=== PATIENT | male | born 1980 | race Caucasian/White ===

== ENCOUNTER 2020-03-29 18:58 | Emergency (ER) | payer BC, SELFPAY ==
[2020-03-29 19:01] VITALS: BP 166/96; PULSE 90; RESP 18; TEMP 36.1; O2SAT 99; BMI 37.3
--- NOTE | 2020-03-29 19:13 | XR_ITS ---
EXAMINATION: XR KNEE, RIGHT CLINICAL INFORMATION: Twisting injury. COMPARISON: None. TECHNIQUE: 4 views of the right knee. FINDINGS: No acute fracture or dislocation. No joint space narrowing or marginal osteophytes. No osseous erosion. No abnormal soft tissue calcification. Trace joint effusion. XR/XR knee RT 4V IMPRESSION: No acute fracture or dislocation. Trace joint effusion.
--- NOTE | 2020-03-29 19:39 | ED_ITS ---
HPI - Extremity Injury (Lower) General Chief Complaint: Extremity Injury, Lower Stated Complaint: knee injury Time Seen by Provider: 03/29/20 19:13 Source: patient Mode of arrival: ambulatory Limitations: no limitations History of Present Illness HPI Narrative: 39-year-old male here with right knee pain. The patient also he was skiing tonight and came to a sudden stop causing a twisting injury of the right knee. He heard a pop. He has had pain since. Worsened with weight- bearing. No previous injury. MD complaint: knee injury Onset (ago): hour(s) Injury: Right: knee Type of Injury: other (Twisting) Place: other ([place]) Severity: moderate Relieving factors: immobilization and rest Exacerbating factors: weight bearing, movement and palpation Context: other (Skiing) Associated symptoms: snap/pop sensation Other symptoms: none Related Data Previous Rx's Medication Instructions Recorded hydrocodone-acetaminophen 1 tab PO Q6H PRN #10 tab 03/29/20 ibuprofen 600 mg PO TID PRN #20 tab 03/29/20 Allergies Allergy/AdvReac Type Severity Reaction Status Date / Time Pt states no food/medication Allergy Unknown Uncoded 07/14/17 00:00 a Review of Systems Review of Systems: Yes all other systems are reviewed and are negative Constitutional: Constitutional: Reports no additional constitutional complaints, Denies body ache(s), Denies chills, Denies fever(s), Denies headache(s) and Denies weakness Eyes: Eyes: Reports no additional eye complaints and Denies change in vision ENT: Reports system reviewed and no additional complaints, except as documented, Denies dizziness, Denies headache(s), Denies nasal congestion, Denies nasal discharge and Denies neck pain Cardiovascular: Cardiovascular: Reports no additional cardiovascular complaints, Denies chest pain, Denies leg edema and Denies dyspnea Respiratory: Respiratory: Reports no additional respiratory complaints, Denies cough and Denies dyspnea Gastrointestinal: Gastrointestinal: Reports no additional gastrointestinal complaints, Denies abdominal pain, Denies diarrhea, Denies nausea and Denies vomiting Genitourinary: Genitourinary: Denies urinary incontinence Musculoskeletal: Musculoskeletal: Reports no additional musculoskeletal complaints, Denies back pain, Reports arthralgias, Denies joint swelling, Denies neck pain, Denies numbness and Denies tingling Integumentary/Breasts: Skin/Breast: Reports system reviewed and no additional complaints, except as docu and Denies rash Neurologic: Reports system reviewed and no additional complaints, except as documented, Denies Abnormal speech present, Denies dizziness, Denies headache(s), Denies numbness, Denies tingling and Denies weakness PMFSH Past Medical History Attestation statement: The following information was validated with the patient. Source: old records reviewed and nursing notes reviewed Medical History Diabetes High cholesterol HTN (hypertension) Obesity Surgical History History of appendectomy Social History Social History Advance Directives: No Advance Directives Information Provided: No Physical Exam Vital Signs: Vital Signs: Last Vital Signs Temp 97.0 F 03/29/20 19:01 Pulse 90 03/29/20 19:01 Resp 18 03/29/20 19:01 BP 166/96 H 03/29/20 19:01 Pulse Ox 99 03/29/20 19:01 Body Mass Index 37.3 Const: General: cooperative, healthy appearing, comfortable and no acute distress Orientation/consciousness: patient oriented x3 Limitations: no limitations HENMT: Head: Yes normal to inspection Ears: hearing grossly normal bilaterally General nose exam: Normal external nose present Face and sinus: Yes normal facial exam Mouth: Normal oral and palatal mucosa present Throat: Yes posterior oropharynx normal Eyes: General: appearance normal, both eyes and all related structures Pupils: Equal, round and reactive pupils present Neck: Neck: Yes normal visual inspection Chest: Chest palpation & inspection: normal inspection of the chest Resp: Effort & Inspection: normal respiratory effort Auscultation: clear to auscultation bilaterally Cardio: Rate: regular rate Rhythm: regular rhythm Peripheral pulses: Peripheral pulses 2+ throughout GI: Inspection: Yes normal to inspection Palpation (GI): Soft to palpation and nontender Auscultation: normal bowel sounds Back/Spine/Pelvis: Thoracic/Lumbar Spine: thoracic and lumbar spine normal to inspection Skin: General skin exam: no rashes or lesions noted Neuro: General: patient oriented x3, no focal motor deficits and normal sensation to monofilament Cranial nerves: Yes Equal, round and reactive pupils present Cognition (Neuro): normal cognition Speech: No Abnormal speech present Gait exam (Neuro): Normal gait present Motor exam (neuro): 5/5 motor strength present throughout Extrem: Other: Tenderness and mild swelling noted over the medial joint line and ligament of the right knee. Patient is able to flex and extend the right knee although has some pain with this. There is no redness, warmth. Neurovascular intact distally. There is some laxity noted of the medial ligament General: Yes normal to inspection Course Course Course Narrative: X-rays negative for bony abnormality. Patient has some laxity of the medial ligament. Likely medial ligament sprain. Considered meniscus injury as well. Patient was placed in a knee splint and given crutches for ambulation. Recommend follow-up outpatient with orthopedics. Reviewed worrisome signs and symptoms and when to return to the emergency department. Comfortable with discharge home. Procedures Orthopedic Splinting/Casting Injury #1: Side: right Lower Extremity Injury Location: knee Lower Extremity Immobilizer: knee immobilizer Other Orthopedic Equipment: crutches MDM - Extremity Injury (Lower) Medical Records Attestation: I reviewed the patient's medical records. Lab Data Attestation: I reviewed the patient's lab results. Imaging Data knee xray: Attestation: I personally reviewed and interpreted this imaging study as follows: Radiologist's impression: [address] [address] XRay Report Signed Patient: Manjit Duffy [facility]#: [id number] : 1980Acct:[id number] Age/Sex: 39 / MADM Date: 03/29/20 Loc: HO.ED Attending Dr: Ordering Physician: KATHIA JUAREZ NP Date of Service: 03/29/20 Procedure(s): XR knee RT 4V Accession Number(s): [id number] cc: KATHIA JUAREZ NP~ EXAMINATION: XR KNEE, RIGHT CLINICAL INFORMATION: Twisting injury. COMPARISON: None. TECHNIQUE: 4 views of the right knee. FINDINGS: No acute fracture or dislocation. No joint space narrowing or marginal osteophytes. No osseous erosion. No abnormal soft tissue calcification. Trace joint effusion. XR/XR knee RT 4V IMPRESSION: No acute fracture or dislocation. Trace joint effusion. Discharge Plan Discharge Clinical Impression: Sprain of right knee Qualifiers: Encounter type: initial encounter Involved ligament of knee: medial collateral ligament Qualified Code(s): S83.411A - Sprain of medial collateral ligament of right knee, initial encounter Patient Disposition: Home, Self-Care Instructions: Knee Sprain (ED) Additional Instructions: Use the knee brace and crutches for nonweightbearing until cleared by Ortho Apply ice, elevate, rest the knee Take ibuprofen around the clock and the stronger pain medicine if you needed Follow-up with [facility]. If you cannot get an appointment with them I have attached a number for our orthopedic doctors. When you speak with them on the phone told me you are seen in the emergency department and there is concern that your medial ligament is injured Prescriptions: New ibuprofen 600 mg tablet 600 mg PO TID PRN (Reason: pain) Qty: 20 RF: 0 hydrocodone-acetaminophen 5-300 mg tablet 1 tab PO Q6H PRN (Reason: pain) Qty: 10 RF: 0 Referrals: Sandhya Berg MD [Physician] - 2 days Interventions: ED Discharge Assessment Last Done: 03/29/20 20:12 Discharge Date/Time: 03/29/20 20:13
== END 2020-03-29 20:13 | disposition home or self-care (01) ==
PROVIDERS: Emergency Provider Emergency Medicine; PCP Internal Medicine
DX: S83.411A Sprain of medial collateral ligament of right knee, initial encounter (principal); X50.1XXA Overexertion from prolonged static or awkward postures, initial encounter; Y93.23 Activity, snow (alpine) (downhill) skiing, snowboarding, sledding, tobogganing and snow tubing; Y92.828 Other wilderness area as the place of occurrence of the external cause; Y99.8 Other external cause status
CPT/HCPCS: 73564; 99283

== ENCOUNTER 2024-05-31 09:45 | Emergency (ER) | payer BC, SELFPAY ==
--- NOTE | ~2024-05-31 | XR_ITS ---
EXAMINATION: XR ANKLE, LEFT CLINICAL INFORMATION: lt ankle injury COMPARISON: None available. TECHNIQUE: AP, lateral, and mortise views of the left ankle. FINDINGS: No acute cortical disruption or malalignment. No lytic or blastic lesion. No joint fusion. XR/XR ankle LT min 3V IMPRESSION: Normal left ankle. Electronically signed by: Jose Gomez MD 05/31/2024 10:15 AM BRENDA
[2024-05-31 09:49] VITALS: BP 161/115; PULSE 85; RESP 16; TEMP 36.6; O2SAT 98; BMI 30.3
--- NOTE | 2024-05-31 10:32 | ED.LOWEXIN ---
HPI - Extremity Injury (Lower) General Chief Complaint: Extremity Injury, Lower Stated Complaint: ? L Ankle Fracture 05/30/24 Time Seen by Provider: 05/31/24 10:22 Source: patient Mode of arrival: ambulatory Limitations: no limitations History of Present Illness ED Provider: DENNY MARIN Narrative: 44 yo male with PMH of HTN, DM not on thinners slip and fall on the ice rolled L ankle yesterday with inversion injury now hurts to walk no other injuries reported. He did walk in to triage on his own. Has sprained this ankle before. This happened last night. complaint: ankle injury Onset (ago): day(s) (last night) Injury: Left: ankle Type of Injury: inversion Place: street/outdoors Severity: moderate Relieving factors: immobilization Exacerbating factors: weight bearing Context: walking Associated symptoms: snap/pop sensation and swelling Other symptoms: none Related Data Previous Rx's ?Medication ?Instructions ?Recorded hydrocodone 5 mg-acetaminophen 300 1 tab PO Q6H PRN pain #10 tabs 03/29/20 mg tablet ibuprofen 600 mg tablet 600 mg PO TID PRN pain #20 tabs 03/29/20 Allergies Allergy/AdvReac Type Severity Reaction Status Date / Time No Known Allergies Allergy Verified 05/31/24 09:50 Review of Systems Review of Systems: Constitutional : No Fever, No Chills ENT/Mouth : No Ear Pain, No Hoarseness, No sore throat Eyes: No Eye Pain, No Swelling, No Redness, No Foreign Body Cardiovascular : No Chest Pain, No SOB Respiratory : No Cough, No Dyspnea Gastrointestinal : No Nausea, No Vomiting, No Diarrhea, No abdominal Pain Genitourinary : No Dysuria, No Hematuria Musculoskeletal : positive joint pain, No Myalgias, pos Joint Swelling Skin : No Skin lacerations, No rash All other systems reviewed and are negative PMFSH Past Medical History Attestation statement: The following information was validated with the patient. Source: old records reviewed Medical History Obesity High cholesterol HTN (hypertension) Diabetes Surgical History History of appendectomy Social History Social History (Updated 05/31/24 @ 12:22 by Bev Alford DO) Patient Tobacco Use Status: Never used Tobacco Physical Exam Vital Signs: Vital Signs: Last Vital Signs Temp 97.9 F 05/31/24 10:36 Pulse 85 05/31/24 10:36 Resp 16 05/31/24 10:36 BP 161/115 H 05/31/24 10:36 Pulse Ox 98 05/31/24 10:36 O2 Del Method Room Air 05/31/24 10:36 BMI result Body Mass Index 30.3 Appearance: Alert. Oriented X3. No acute distress. Eyes: Pupils equal, round and reactive to light. ENT: Pharynx normal. Neck: Normal inspection. CVS: Pulses normal. Respiratory: No respiratory distress. Abdomen: atraumatic Skin: Skin warm and dry. Normal skin color. Extremities: No lower extremity edema. L ankle ttp along anterior lateral malleolus, achilles intact, escamilla test normal, distal NV Intact, no foot or metatarsal pain, achilles exam normal no ttp or swelling Neuro: Oriented X 3. No motor deficit. No sensory deficit. CN2-12 intact Medical Decision Making Medical Decision Making MDM Narrative: 44 yo male with DM, HTN here with c/o L ankle pain and swelling after rolling ankle on exam compartments are soft and compressible his Achilles test is normal at this time will need xray to rule out fracture and plan for air cast and crutches. He is instructed to wear aircast for 7 days and use crutches for 5 days without toe touch weight bearing on day 5. Follow up with PCP if not better Differential Diagnosis Differential Diagnoses: The differential diagnosis associated with the presentation includes sprain, strain, fracture Independent Interpretation I performed an independent interpretation of an: Plain X-Ray (no fracture noted) Radiology Impression Discussion of test interpretation with radiology: I have reviewed the radiologist's reading. Prescription Management I considered prescription management with: Pain Medication Procedures Orthopedic Splinting/Casting Injury #1: Side: left Lower Extremity Injury Location: ankle Lower Extremity Immobilizer: AirCast Other Orthopedic Equipment: crutches Additional Comments: NV intact Discharge Plan Discharge Clinical Impression: Ankle sprain and strain Patient Disposition: Home, Self-Care Instructions: Ankle Sprain (ED), Ankle Stirrup Splint (ED) Additional Instructions: xray normal return for any worsening symptoms or concerns such as severe calf pain and numbness/weakness or cold blue foot if not better in 5 days please follow up with your doctor. your blood pressure was high today please monitor CLINICAL INFORMATION: lt ankle injury COMPARISON: None available. TECHNIQUE: AP, lateral, and mortise views of the left ankle. FINDINGS: No acute cortical disruption or malalignment. No lytic or blastic lesion. No joint fusion. XR/XR ankle LT min 3V IMPRESSION: Normal left ankle. Prescriptions: No Action ibuprofen 600 mg tablet 600 mg PO TID PRN (Reason: pain) Qty: 20 0RF hydrocodone-acetaminophen 5-300 mg tablet 1 tab PO Q6H PRN (Reason: pain) Qty: 10 0RF Interventions: ED Discharge Assessment Last Done: 05/31/24 10:36 Discharge Date/Time: 05/31/24 10:38 Print Language: Luxembourgish
[2024-05-31 10:36] VITALS: BP 161/115; PULSE 85; RESP 16; TEMP 36.6; O2SAT 98
--- OUTSIDE RECORDS SUMMARY | 2024-05-31 12:34 | XMS_ITS | Continuity of Care Document ---
Author Organization [facility] Address [address] [place] [address]- Care Team Providers Care Jet Pilot Name Role Phone Devan Prasad MD Primary Care Physician [phone] [id number] Date[facility]s): 04/28/24 - 05/28/24 [facility] [address] [place], [place] [address] Encounter Type: Triage Allergies, Adverse Reactions, Alerts Substance Criticality Severity Reaction Reaction Severity Status lisinopril cough Active Norvasc gi upset Active Trulicity Pen Unable to assess criticality Persistent Mild gi upset Active tadalafil nausea Active Victoza gi upset Active Immunizations Given and Recorded Vaccine Date Status Refusal Reason influenza virus vaccine, inactivated 01/13/22 Bashir rded influenza virus vaccine, inactivated 12/25/20 Bashir rded influenza virus vaccine, inactivated 01/15/20 Bashir rded influenza virus vaccine, inactivated 01/01/20 Bashir rded influenza virus vaccine, inactivated 01/06/19 Bashir rded influenza virus vaccine, inactivated 1 02/21/18 Gi dann influenza virus vaccine, inactivated 2 12/09/16 Gi dann influenza virus vaccine, inactivated 01/28/16 Bashir rded influenza virus vaccine, inactivated 3 01/01/14 Gi dann SARS-CoV-2 mRNA ([id number]) vax 06/12/21 Recorded SARS-CoV-2 (COVID-19) mRNA BNT-162b2 vac 12/25/20 Recorded SARS-CoV-2 (COVID-19) mRNA BNT-162b2 vac 05/15/20 Recorded SARS-CoV-2 (COVID-19) mRNA BNT-162b2 vac 4 04/22/20 Recorded Influenza Virus Vaccine (oldterm) 04/17/18 Recorde d tetanus/diphtheria/pertussis, acel(Tdap) 5 12/09/16 Given pneumococcal 23-valent vaccine 10/02/13 Given FluLaval (oldterm) 01/15/10 Given tetanus-diphtheria toxoids (Td) 02/26/06 Given 1Result Comment: [02/21/2018] [facility]# [id number] pt. tolerated inj. without complications...CO 2Result Comment: [12/09/2016] given without incident. [id number] injection....vb 3Result Comment: [01/01/2014] given w/o incident...AA 4Result Comment: Given at [facility] 5Result Comment: [12/09/2016] given without incident.....vb Medications Baqsimi Two Pack 3 mg nasal powder = 3 mg, Nares, Both, Once, For emergency use in event of hypoglycemia and unable to take in PO, # 2each, 0 Refills, Soft Stop, 10/22/21 10:28:00 AM EDT, [facility]/pharmacy #[id number], Partial fill upon patient request if the prescription is for a schedule II opioid drug., 177.8, cm, 10/22/21 7:56:00 EDT, Height, 119.5, kg, 10/21/21 19:44:00 EDT, Dry Weight Start Date: 10/22/21 Status: Ordered Quantity: 2.0 Unit: each Repeat number: 1 Calcium 600 +D oral tablet 1 tablet, By Mouth, 3 times a day, # 90 tablet, 0 Refills, Maintenance, 07/29/22 2:16:00 PM EDT, Tablet, Partial fill upon patient request if the prescription is for a schedule II opioid drug. Start Date: 07/29/22 Status: Ordered Quantity: 90.0 Unit: tablet Repeat number: 1 citalopram 20 mg oral tablet 1 tablet, By Mouth, Daily, # 90 tablet, 1 Refills, Maintenance, 04/28/24 2:59:00 PM EST, [facility], 177.8, cm, 12/27/23 15:40:00 EDT, Height, 96.9, kg, 12/27/23 15:20:00 EDT, Dry Weight Start Date: 04/28/24 Status: Ordered Quantity: 90.0 Unit: tablet Repeat number: 1 losartan 100 mg oral tablet 1 tablet, By Mouth, Daily, # 90 tablet, 3 Refills, Maintenance, 11/01/23 12:44:00 PM EDT, [facility], 177.8, cm, 10/14/22 15:21:00 EDT, Height, 91.4, kg, 06/26/22 7:24:00 EDT, Dry Weight Start Date: 11/01/23 Status: Ordered Quantity: 90.0 Unit: tablet Repeat number: 1 Metamucil 400 mg oral capsule See Instructions, 3 capsule By Mouth 2 times a day, 0 Refills, Maintenance, 07/29/22 2:16:00 PM EDT, Partial fill upon patient request if the prescription is for a schedule II opioid drug. Start Date: 07/29/22 Status: Ordered Repeat number: 1 Metformin = 1,000 mg, By Mouth, 2 times a day, 0 Refills, Maintenance, 02/08/19 11:43:15 AM EST Start Date: 02/08/19 Status: Ordered Repeat number: 1 metoprolol 50 mg oral tablet, extended release See Instructions, 1 tablet By Mouth twice Daily, # 180 each, Refills 3, Tot. Refills 3, Maintenance, 07/14/23 7:43:00 AM EDT, Instructions Replace Required Details, Route to Pharmacy Electronically, [facility], Partial fill upon patient request if the prescription is for a schedule II opioid drug., 177.8, cm, 10/14/22 15:21:00 EDT, Height, 91.4, kg, 06/26/22 7:24:00 EDT, DryWeight Start Date: 07/14/23 Status: Ordered Quantity: 180.0 Unit: each Repeat number: 4 Multivitamin 1 cap, By Mouth, Daily, 0 Refills, Maintenance, 04/24/20 1:53:00 PM EST, Partial fill upon patient request if the prescription is for a schedule II opioid drug. Start Date: 04/24/20 Status: Ordered Repeat number: 1 omeprazole 20 mg oral enteric coated capsule See Instructions, TAKE 1 CAPSULE DAILY, # 90 capsule, 3 Refills, Maintenance, 03/30/23 3:32:00 PM EST, [facility], 177.8, cm, 10/14/22 15:21:00 EDT, Height, 91.4, kg, 06/26/22 7:24:00 EDT, Dry Weight Start Date: 03/30/23 Status: Ordered Quantity: 90.0 Unit: capsule Repeat number: 4 Probiotic Formula By Mouth, Daily, 0 Refills, Maintenance, 06/23/22 11:27:00 AM EDT, Partial fill upon patient requestif the prescription is for a schedule II opioid drug. Start Date: 06/23/22 Status: Ordered Repeat number: 1 Problem List Condition Confirmation Course Effective Dates Status H ealth Status Informant Anxiety Confirmed Active Appendectomy Confirmed 05/2006 Active Family history of colon cancer Confirmed Active GERD (gastroesophageal reflux disease) Confirmed Active H/O chest pain Confirmed Active History of repair of ACL Confirmed Active History of sleeve gastrectomy Confirmed Active Hyperlipidemia Confirmed Active Hypertension Confirmed Active Supraumbilical port site incisional hernia Confirmed Active Obese class I Confirmed Active DARIEN on CPAP Confirmed Active Fatty liver Confirmed Active Diabetes mellitus type 2, uncomplicated Confirmed Active Social History Social History Type Response Smoking Status Never (less than 100 in lifetime) entered on: 02/14/19 Sex Sex Representation Male (finding) Patient Care team information Care Team Personnel Name: Susan Schwarz RN Position: [facility] RN Member Role: Primary Care Nurse Name: Devan Prasad MD Position: [facility] Physician - Primary Care Member Role: PCP Address: [address] [place] [address] [facility] [address] Telecom: Care Team Related Persons Name: FIONA OLEARY Name: TAMMIE OLEARY Insurance Providers Guarantor name: KRISTEN OLEARY Health Plan Information #: 1 Payer: [employer] Member Number: NA Policy Number: NA Group Number: NA
--- OUTSIDE RECORDS SUMMARY | 2024-05-31 12:34 | XMS_ITS | Patient Health Record ---
Author Organization [facility] Address [address] [place] [address] Care Team Providers Care Palliative Care Nurse Name Role Phone Osmar BOURNE, Devan Primary Care Provider Soni Quiñonez Unavailable [phone] Allergies No Known Allergies Reason For Referral No Information Medications Medication SIG (Take, Route, Frequency, Duration) Notes Start Date End Date Status Work Note . . . Pt was seen today and had minor nail surgery for . 12/11/2013 Not-Taking Metoprolol Succinate 50 MG 1 capsule Ora lly Once a day for 30 day(s) Active Keflex 500 MG 1 capsule Orally every 12 hrs for 10 day(s) 11/02/2013 Not-Taking Vascepa 1 GM 2 capsules with meals Orally Twice a day for 30 day(s) Not-Taking Keflex 500 MG 1 capsule Orally every 12 hrs for 10 day(s) 12/11/2013 Not-Taking Losartan Potassium 100 MG 1 tablet Orall y Once a day for 30 day(s) Active NovoLOG 100 UNIT/ML as directed Subcutaneous Not-Taking glipiZIDE Not-Taking Ozempic (0.25 or 0.5 MG/DOSE) 2 MG/1.5ML as directed Subcutaneous Not-Taking lipitor Not-Taking Cephalexin 500 MG 1 capsule Orally every 12 hrs for 5 day(s) Active Doxycycline (Rosacea) 100mg Not-Taking hydroCHLOROthiazide 25mg Not-Taking Omeprazole 20 MG 1 tablet 30 minutes before morning meal Orally Once a day Active Rosuvastatin Calcium 40 MG 1 tablet Oral ly Once a day for 30 day(s) Not-Taking Acetaminophen-Codeine #2 300-15 MG 1 tablet as needed Orally every 6 hrs for as needed 11/02/2013 Not-Taking metFORMIN HCl 1000 MG 2 tablets Orally Once a day Active Social History Alcohol Screen Question Answer Notes Did you have a drink containing alcohol in the p ast year? No Points 0 Interpretation Negative Tobacco use other than smoking: Question Answer Notes Are you an other tobacco user? No Problems Problem Type SNOMED Code ICD Code Onset Dates Problem Status W/U Status Risk Notes Problem Cellulitis and abscess of toe (521206789) Celluitis - Toes (681.10) Active confirmed Problem Pain in limb (64200572) Pain in Limb (729.5) Active confirmed Problem Paronychia (92451142) Paronychia (681.11) Active confirmed Problem 355899530 Type 2 diabetes mellitus without complication, without long-term current use of insulin (E11.9) Active confirmed Plan Of Treatment Pending Test Test Name Order Date [id number] 11/02/2013 [id number] SKIN/TISSUE 11/15/2013 59763 I&D ABSCESS- SIMPLE,SINGLE 014 72451 I&D ABSCESS- SIMPLE,SINGLE 014 Insurance Providers Payer Name Payer Address Payer Phone Subscriber Number Group Number Insured Name Patient Relationship to Insured Coverage Start Date Coverage End Date [employer] [address] [place] [address] [phone] [id number] Susan Duffy Spouse - patient is the spouse of the insured Medical (General) History Medical History History ICD Code Hypertension Chicken pox type II diabetes Diverticulitis Hiatal hernia Joint implants/screws Surgical History Surgery Date(Month/Year) appendectomy acl Weight loss surgery
--- OUTSIDE RECORDS SUMMARY | 2024-05-31 12:34 | XMS_ITS | Data Portability ---
Author Organization [facility], , [facility] Address [address] [place] [address] Care Team Providers Care Electroneurodiagnostic Technologist Name Role Phone OSMAR ANTONIO Primary Care Provider JAS HARRELL Family And Consumer Science Professor NOE LYLE Product Marketing Director OSMAN AMAYA Cotton Washer Assessment Encounter Date Assessment Date Assessment LastModified by Organization Details LastModified Time 04/29/2021 04/29/2021 T2DM - previously on metformin, Lantus and humalog but only on glargine (08/2017) after had significant weight loss working with program in [place] (high protein low CHO). 2019- metformin, lantus, humalog and jardiance (10). - Had s/e on Trulicity and victoza. - Trial of pioglitazone in 2017 with better a1c by 0.5 but no impact on TG. Gained weight in winter 2016. 2019- Stopped going to program. Didn't go back on oral meds- Lantus/Humalog 01/14- looking at sleeve surgery in [facility]. 04/18: Issue for BG is post-dinner highs extending o/n. Change CARB ratio to give more, especially lunch and dinner. 11/16: Excellent a1c with good amount in target zone (60%). Highs intermittently after lunch but several late evening (snacking) that extend o/n. Has gained weight (didn't go for bariatric eval after had ACL injury). 05/20: CGM shows > 80% in target range. Due for labs. Big issue remains weight. Couldn't tolerate incretin (recently ozempic). Hoping for gastric sleeve by summer 2021. DSYLIPIDEMIA: with high TG and low HDL. 04/18- worse now than in past. 11/16: Big issue is high TG (over 400) resulting in ALT>AST c/w fatty liver. Would like to use incretin but had s/e to victoza and trulicity. Would like to try ozempic but want to get TG down first (over 480). - Change atorva to rosuva f/u labs in 6 weeks. If TG are closer to < 300, then can arrange trial of ozempic to see if tolerates 05/20: CARDS put him on Vascepa. Update Lipids and monitor. FATTY LIVER/NAFLD Noted in past (pre-2018): fatty liver with increased ALT (but not AST) NAFLD has had recurrent evidence of ALT > AST. Confirmed in 02/16. CGM REPORT: DATES: 03/31/21-04/29/21 AVG GLU: 137 +/- 33; CV= 23.8% Time in range: 88%; was 62% Time high: 11% was 37% Time low: 1% was 1% GENERAL PATTERN: Avg around 140-150 at MN with slight decrease to 125mg/dl by 2AM and slight rise to back to 140-150 until 8AM. Decrease to 110-120 (with some values <100) by noon. Gradual increase to 140 mg/dl by 5PM and fairly stable until 9PM with increase to 150mg/dl by 11PM and subsequent decrease back to 140-150. INDIVIDUAL DAYS: Multiple instances with increases in evening- some from dinner but almost 1/3 of days have increases starting after 8-9PM with most continuing for several hours after MN. Some few brief episodes of hypoglycemia. Also some longer periods with values close to lower end of target range- no particular time of day. IMPRESSION: Excellent control with 88% of time in target range which is a significant improvement of preceding month. RECOMMENDATION: Watch dietary intake in evening. If having snacks, suggest increase bolus for those. If not snacking, review option of increasing basal delivery from 8-10PM. 12/29-01/27/21- IMPRESSION: Sub-optimal control with values in range less than 50% of the time. RECOMMENDATION: Review meal choices at dinner and bolus dosing at that time. DATES: 10/21-11/19/20 IMPRESSION: Good control of blood glucoses but high values noted in early afternoon and late evening. RECOMMENDATION: May need adjustment to oldepvr-nj-oyic ratios midday but more important may be need to impact snacking (and consequences of snacking) in evening. PREVIOUS CGM: DATES: 03/24/20-04/22/20 ; IMPRESSION: Reasonable but not optimal glucose control. Smaller percent time spent in target range vs preceding month. Glucose values often rise in afternoon/evenin g and sometimes, but not always, extend overnight. Enhanced Provider time spent performing enhanced activities which may include, but are not limited to: reviewing tests, obtaining and/or reviewing patient history; ordering medications, test or procedures; EMR documentation; communication with patient, family, caregiver(s), VNA; pre-visit prep time communication with specialists, ER staff. Time spent: 43 (minutes) Keep working on diet, especially in evening. If not snacking then, consider increase in basal from 8-10/11PM. [email or web address] Not available 2021 13:59:14 10/31/2021 10/31/2021 T2DM - previously on metformin, Lantus and humalog but only on glargine (08/2017) after had significant weight loss working with program in [place] (high protein low CHO). 2019- metformin, lantus, humalog and jardiance (10). - Had s/e on Trulicity and victoza. - Trial of pioglitazone in 2016 with better a1c by 0.5 but no impact on TG. Gained weight in winter 2016. 2019- Stopped going to program. Didn't go back on oral meds- Lantus/Humalog 01/14- looking at sleeve surgery in [facility]. 04/18: Issue for BG is post-dinner highs extending o/n. Change CARB ratio to give more, especially lunch and dinner. 11/16: Excellent a1c with good amount in target zone (60%). Highs intermittently after lunch but several late evening (snacking) that extend o/n. Has gained weight (didn't go for bariatric eval after had ACL injury). 05/20: CGM shows > 80% in target range. Due for labs. Big issue remains weight. Couldn't tolerate incretin (recently ozempic). Hoping for gastric sleeve by summer 2021. 11/17: s/p sleeve (Ilana). Initial response per CGM is excellent. DSYLIPIDEMIA: with high TG and low HDL. 04/18- worse now than in past. 11/16: Big issue is high TG (over 400) resulting in ALT>AST c/w fatty liver. Would like to use incretin but had s/e to victoza and trulicity. Would like to try ozempic but want to get TG down first (over 480). - Change atorva to rosuva f/u labs in 6 weeks. If TG are closer to < 300, then can arrange trial of ozempic to see if tolerates 05/20: CARDS put him on Vascepa. Update Lipids and monitor. 12/18: TG up in 200s but has been higher. FATTY LIVER/NAFLD Noted in past (pre-2017): fatty liver with increased ALT (but not AST) NAFLD has had recurrent evidence of ALT > AST. Confirmed in 02/16. 11/17: LFTs OK and now s/p sleeve surgery. CGM REPORT: DATES: 10/02/21-10/31/21 AVG GLU: 161 +/- 43. CV= 26.8% Time in range: 74% was 53% Time high: 25% was 46% Time low: <1% was 0% GENERAL PATTERN: Average at MN is 140 and increases slowly to 150mg/dl by2AM and then 160mg/dl by 8AM. Values decrease to 140mg/dl by 10AM and rise to 150mg/dl between 1-6PM. Increase in glucose values to 170-180mg/dl by 8PM and then decreases back towards 140-150mg/dl. INDIVIDUAL DAYS: Initial 3 weeks show increases at lunch/dinner. One low at 12:30AM resulted in rebound high. Most recent week shows much improved values with nearly 100% of time in target zone. IMPRESSION: Excellent control of diabetes with over 70% of time in target zone. Significantly, the most recent work contains nearly all time in target zone. This time may correspond to bariatric surgery. RECOMMENDATION: No changes made to present regimen. PRIOR CGM:DATES: 03/31/21-04/29/21 IMPRESSION: Excellent control with 88% of time in target range which is a significant improvement of preceding month. PREVIOUS CGM: 12/29-01/27/21- IMPRESSION: Sub-optimal control with values in range less than 50% of the time. RECOMMENDATION: Review meal choices at dinner and bolus dosing at that time. PREVIOUS CGM: DATES: 10/21-11/19/20 IMPRESSION: Good control of blood glucoses but high values noted in early afternoon and late evening. PREVIOUS CGM: DATES: 03/24/20-04/22/20 ; IMPRESSION: Reasonable but not optimal glucose control. Smaller percent time spent in target range vs preceding month. Glucose values often rise in afternoon/evenin g and sometimes, but not always, extend overnight. Enhanced Provider time spent performing enhanced activities which may include, but are not limited to: reviewing tests, obtaining and/or reviewing patient history; ordering medications, test or procedures; EMR documentation; communication with patient, family, caregiver(s), VNA; pre-visit prep time communication with specialists, ER staff. Time spent: 42 (minutes) 11/17: continue pump at 50% settings for now. After constipation better, re-start metformin at 500 bid. If BG OK after 5-7 days, then increase metformin to 1000 bid and stop pump but continue recording with dexcom. Will hope to upload dexcom readings in 2-3 weeks. goal is to get off pump and use metformin +/- other meds [email or web address] Not available 12/11/2021 12:39:52 05/04/2022 05/04/2022 T2DM - previously on metformin, Lantus and humalog but only on glargine (08/2017) after had significant weight loss working with program in [place] (high protein low CHO). 2019- metformin, lantus, humalog and jardiance (10). - Had s/e on Trulicity and victoza. - Trial of pioglitazone in 2017 with better a1c by 0.5 but no impact on TG. Gained weight in winter 2016. 2019- Stopped going to program. Didn't go back on oral meds- Lantus/Humalog 01/14- looking at sleeve surgery in [facility]. 04/18: Issue for BG is post-dinner highs extending o/n. Change CARB ratio to give more, especially lunch and dinner. 11/16: Excellent a1c with good amount in target zone (60%). Highs intermittently after lunch but several late evening (snacking) that extend o/n. Has gained weight (didn't go for bariatric eval after had ACL injury). 05/20: CGM shows > 80% in target range. Due for labs. Big issue remains weight. Couldn't tolerate incretin (recently ozempic). Hoping for gastric sleeve by summer 2021. 11/17: s/p sleeve (Ilana). Initial response per CGM is excellent. 05/21: Doing very well s/p gastric sleeve. Metformin only. DSYLIPIDEMIA: with high TG and low HDL. 04/18- worse now than in past. 11/16: Big issue is high TG (over 400) resulting in ALT>AST c/w fatty liver. Would like to use incretin but had s/e to victoza and trulicity. Would like to try ozempic but want to get TG down first (over 480). - Change atorva to rosuva f/u labs in 6 weeks. If TG are closer to < 300, then can arrange trial of ozempic to see if tolerates 05/20: CARDS put him on Vascepa. Update Lipids and monitor. 12/18: TG up in 200s but has been higher. 05/21: Off meds s/p gastric bypass but will want to see if might benefit from low dose statin. FATTY LIVER/NAFLD Noted in past (pre-2017): fatty liver with increased ALT (but not AST) NAFLD has had recurrent evidence of ALT > AST. Confirmed in 02/16. 11/17: LFTs OK and now s/p sleeve surgery. 05/21: Will want to update u/s after more stable (in terms of a1c and weight). CGM REPORT: DATES:04/05/22-05/04 AVG GLU: 177 mg/DL with SD of 41 mg/DL; CV equals 23.4% Time in range: 59% Time high: 40% Time low: 1% GENERAL PATTERN: Average at midnight is 210 mg/DL and decreases slowly to 150 x 6 a.m. He does remain at approximately 150 mg/DL until 11 AM when they slowly rise reaching 180 at 3 PM and 190 from 330: 4:30 PM. Values then decreased back to approximately 160 mg/DL by 7:30 PM and then rise and reach a level of approximately 210 by 11:30 PM. Overall, there is fairly wide variability from approximately 9 PM through 2 AM. INDIVIDUAL DAYS: Multiple instances of glucose values increasing at approximately 8-9 PM and continuing past midnight. IMPRESSION: Suboptimal control of diabetes with 59% of time in target range. Overall, less than ideal use of CGM with 47% of days having usable CGM data RECOMMENDATION: Review snacking habits at night and potential treatments to address resulting hyperglycemia PREVIOUS CGM: 10/02/21-10/31/21 IMPRESSION: Excellent control of diabetes with over 70 % of time in target zone. Significantly, the most recent work contains nearly all time in target zone. This time may correspond to bariatric surgery. PRIOR CGM:DATES: 03/31/21-04/29/21 IMPRESSION: Excellent control with 88 % of time in target range which is a significant improvement of preceding month. PREVIOUS CGM: 12/29-01/27/21- IMPRESSION: Sub-optimal control with values in range less than 50 % of the time. RECOMMENDATION: Review meal choices at dinner and bolus dosing at that time. PREVIOUS CGM: DATES: 10/21-11/19/20 IMPRESSION: Good control of blood glucoses but high values noted in early afternoon and late evening. PREVIOUS CGM: DATES: 03/24/20-04/22/20 ; IMPRESSION: Reasonable but not optimal glucose control. Smaller percent time spent in target range vs preceding month. Glucose values often rise in afternoon/evenin g and sometimes, but not always, extend overnight. Enhanced Provider time spent performing enhanced activities which may include, but are not limited to: reviewing tests, obtaining and/or reviewing patient history; ordering medications, test or procedures; EMR documentation; communication with patient, family, caregiver(s), VNA; pre-visit prep time communication with specialists, ER staff. Time spent: 36 (minutes) 11/17: continue pump at 50% settings for now. After constipation better, re-start metformin at 500 bid. If BG OK after 5-7 days, then increase metformin to 1000 bid and stop pump but continue recording with dexcom. Will hope to upload dexcom readings in 2-3 weeks. goal is to get off pump and use metformin +/- other meds 05/21: Off pump and most other meds- metformin only. CGM shows occ increase with higher sugar loads. Not frequent and generally comes back into target range. Stay on metformin and monitor a1c and see if further weight loss helps improve post-meal surges. OFF Rosuva in 03/19 (off since 10/17). Check labs in 06/17 and decide then. [email or web address] Not available 06/10/2022 09:57:57 11/09/2022 11/09/2022 T2DM - previously on metformin, Lantus and humalog but only on glargine (08/2017) after had significant weight loss working with program in [place] (high protein low CHO). 2019- metformin, lantus, humalog and jardiance (10). - Had s/e on Trulicity and victoza. - Trial of pioglitazone in 2016 with better a1c by 0.5 but no impact on TG. Gained weight in winter 2016. 2018- Stopped going to program. Didn't go back on oral meds- Lantus/Humalog 01/14- looking at sleeve surgery in [facility]. 04/18: Issue for BG is post-dinner highs extending o/n. Change CARB ratio to give more, especially lunch and dinner. 11/16: Excellent a1c with good amount in target zone (60%). Highs intermittently after lunch but several late evening (snacking) that extend o/n. Has gained weight (didn't go for bariatric eval after had ACL injury). 05/20: CGM shows > 80% in target range. Due for labs. Big issue remains weight. Couldn't tolerate incretin (recently ozempic). Hoping for gastric sleeve by summer 2021. 11/17: s/p sleeve (Ilana). Initial response per CGM is excellent. 05/21: Doing very well s/p gastric sleeve. Metformin only. 11/18: metformin 1000 bid. continue DSYLIPIDEMIA: with high TG and low HDL. 04/18- worse now than in past. 11/16: Big issue is high TG (over 400) resulting in ALT>AST c/w fatty liver. Would like to use incretin but had s/e to victoza and trulicity. Would like to try ozempic but want to get TG down first (over 480). - Change atorva to rosuva f/u labs in 6 weeks. If TG are closer to < 300, then can arrange trial of ozempic to see if tolerates 05/20: CARDS put him on Vascepa. Update Lipids and monitor. 12/18: TG up in 200s but has been higher. 05/21: Off meds s/p gastric bypass but will want to see if might benefit from low dose statin. 11/18: put back on rosuva (5mg) FATTY LIVER/NAFLD Noted in past (pre-2017): fatty liver with increased ALT (but not AST) NAFLD has had recurrent evidence of ALT > AST. Confirmed in 02/16. 11/17: LFTs OK and now s/p sleeve surgery. 05/21: Will want to update u/s after more stable (in terms of a1c and weight). 11/18: Comment on CT during ER visit: Liver: Subtle hypodensity near the falciform ligament, likely represents focal fat deposition. LAST CGM REPORT: 04/05/22-05/04/22 IMPRESSION: Suboptimal control of diabetes with 59% of time in target range. Overall, less than ideal use of CGM with 47% of days having usable CGM data RECOMMENDATION: Review snacking habits at night and potential treatments to address resulting hyperglycemia PREVIOUS CGM: 10/02/21-10/31/21 IMPRESSION: Excellent control of diabetes with over 70 % of time in target zone. Significantly, the most recent work contains nearly all time in target zone. This time may correspond to bariatric surgery. PRIOR CGM:DATES: 03/31/21-04/29/21 IMPRESSION: Excellent control with 88 % of time in target range which is a significant improvement of preceding month. PREVIOUS CGM: 12/29-01/27/21- IMPRESSION: Sub-optimal control with values in range less than 50 % of the time. RECOMMENDATION: Review meal choices at dinner and bolus dosing at that time. PREVIOUS CGM: DATES: 10/21-11/19/20 IMPRESSION: Good control of blood glucoses but high values noted in early afternoon and late evening. PREVIOUS CGM: DATES: 03/24/20-04/22/20 ; IMPRESSION: Reasonable but not optimal glucose control. Smaller percent time spent in target range vs preceding month. Glucose values often rise in afternoon/evenin g and sometimes, but not always, extend overnight. Enhanced Provider time spent performing enhanced activities which may include, but are not limited to: reviewing tests, obtaining and/or reviewing patient history; ordering medications, test or procedures; EMR documentation; communication with patient, family, caregiver(s), VNA; pre-visit prep time communication with specialists, ER staff. Time spent: 35 (minutes) 11/17: continue pump at 50% settings for now. After constipation better, re-start metformin at 500 bid. If BG OK after 5-7 days, then increase metformin to 1000 bid and stop pump but continue recording with dexcom. Will hope to upload dexcom readings in 2-3 weeks. goal is to get off pump and use metformin +/- other meds 05/21: Off pump and most other meds- metformin only. CGM shows occ increase with higher sugar loads. Not frequent and generally comes back into target range. Stay on metformin and monitor a1c and see if further weight loss helps improve post-meal surges. OFF Rosuva in 03/19 (off since 10/17). Check labs in 06/17 and decide then. 11/18: A1c at target on only metformin. restart rosvua 5 mg. ade Not available 01/05/2023 05:03:54 Plan of Treatment Reminders Order Date Submit Date Provider Last Modified By Organization Details Last Modified Time Details Appointments Follo w Up, 20 2024 09:40A M Osman Amaya MD Not available Not available Not available Teach ing 2024 08:15A M [facility] Endocrinolog y Nurse Not available Not available Not available Lab CMP, serum or plasm a 2022 023 Not available 10/07/2023 08:20:54 HbA1c (hemo globi n A1c), blood 2022 023 [email or web address] Not available 11/09/2023 09:35:20 lipid panel , serum 2022 023 Not available 10/07/2023 08:20:59 micro album in, urine 2022 023 Not available 10/07/2023 08:21:05 CMP, serum or plasm a 2021 022 JACQUELINE Not available 02/27/2022 15:12:09 HbA1c (hemo globi n A1c), blood 2021 022 JACQUELINE Not available 02/27/2022 14:48:54 lipid panel , serum 2021 022 AJCQUELINE Not available 02/27/2022 15:12:11 micro album in, urine 2021 022 JACQUELINE Not available 02/27/2022 15:02:22 CMP, serum or plasm a 2021 022 JACQUELINE Not available 06/04/2021 15:32:38 HbA1c (hemo globi n A1c), blood 2021 022 JACQUELINE Not available 06/04/2021 17:17:40 lipid panel , serum 2021 022 JACQUELINE Not available 06/04/2021 15:32:39 micro album in, urine 2021 022 JACQUELINE Not available 06/04/2021 15:58:53 CMP, serum or plasm a 2021 022 JACQUELINE Not available 10/27/2021 18:19:50 lipid panel , serum 2021 022 JACQUELINE Not available 10/27/2021 18:19:52 micro album in, urine 2021 022 JACQUELINE Not available 10/27/2021 21:30:10 HbA1c (hemo globi n A1c), blood 2021 022 JACQUELINE Not available 10/27/2021 18:14:57 Referral None recor ded. Procedures None recor ded. Surgeries None recor ded. Imaging None recor ded. Medication Orders rosuv astat in 5 mg table t 2022 023 [facility], [place], [id number], 01/05/2023 05:05:36 Patient TargetsNo targets recorded. Patient Instructions Encounter Date Encounter Id Patient Instructions Last Modified By Organization Details Last Modified Time 04/29/2021 [id number] - Get labs done as ordered - Continue to monitor your blood sugars as directed - Follow a healthy diet - Try and be as physically active as you can - Stay on rosuvastatin (40mg) to help bring triglycerides (blood fats) down. - Fatty liver and triglycerides will also be helped by weight loss. Work towards losing 25# over next several months. Watch out for snacking in evening. If you are, then should give bolus for snack. If you're not snacking and still having increases in sugar between 9-11PM, would adjust pump basal settings to give more starting at 8PM and ending at 10PM. Control IQ will still benefit. [email or web address] Not available 2021 13:59:11 6+ months 40 minutes [email or web address] Not available 04/29/2021 14:42:59 10/31/2021 [id number] - Get labs done as ordered - Continue to monitor your blood sugars as directed - Follow a healthy diet - Try and be as physically active as you can - Stay on rosuvastatin (40mg) to help bring triglycerides (blood fats) down. - Fatty liver and triglycerides will also be helped by weight loss. Hope to see continued improvement since gastric sleeve surgery - Continue pump at 50% settings. - After constipation better, re-start metformin at 500 bid. If BG OK after 5-7 days, then increase metformin to 1000 bid and stop pump but continue recording with dexcom. [email or web address] Not available 12/11/2021 12:40:17 6+ months 40 minutes Not available 10/29/2021 15:00:05 12/23/2021 [id number] -Continue to use the Dexcom G6 sensor to review blood sugars with meals. -Continue to monitor how you are doing after 6 pm and after 9 pm. -Consider changing the time of your shake at night to closer to your walk time, if possible. -Continue Metformin ER 500 mg, 2 tabs twice a day. -Continue to walk almost daily for at least 30 minutes. -Please call with any further questions or concerns. [email or web address] Not available 12/23/2021 17:09:47 FU with Diabetes Education on a PRN Basis and FU with Dr. Amaya in April. Time in: 2:35 pm Time out: 3:25 pm Total minutes with patient: 50 mins Patient agreed to this visit via secure telehealth platform due to the COVID -19 pandemic. Patient understands this is a scheduled visit and the usual procedures with regard to billing and confidentiality apply. Patient was notified that the provider location is at [facility] Patient location: home During the visit the patient? s medical history and medical record were reviewed. The patient was notified to call our office for worsening or urgent symptoms. [email or web address] Not available 12/23/2021 17:10:29 05/04/2022 [id number] - Get labs done as ordered - Continue to monitor your blood sugars as directed - Follow a healthy diet - Try and be as physically active as you can - Let's see what next cholesterol profile shows- may be worth using at least a low dose of rosuvastatin - Fatty liver and triglycerides will also be helped by weight loss. Hope to see continued improvement since gastric sleeve surgery - Continue on metformin. [email or web address] Not available 06/10/2022 09:56:41 6+ months 40 minutes Not available 05/04/2022 09:58:04 11/09/2022 [id number] - Get labs done as ordered - Continue to monitor your blood sugars as directed - Follow a healthy diet - Try and be as physically active as you can - Given recent cholesterol profile- suggest low dose of rosuvastatin - Fatty liver and triglycerides will also be helped by weight loss. Hope to see continued improvement since gastric sleeve surgery - Continue on metformin. - Re-start rosuvastatin [email or web address] Not available 01/05/2023 05:04:29 12 months/ 40 minutes [email or web address] Not available 11/09/2022 16:23:05 Reason for Referral None Reported. Results Created Date Observation Date Name Description Value Unit Range Abnormal Flag Note LastModifiedBy Organization Detail LastModifiedTime 06/05/19 22 06/04/2021 COMPR EHENS JOSE DAVID METAB OLIC PANL glucose 141 mg/dL (70-99 ) high Not Available [facility] (Centralized Electronic Ordering - All Locations) Patient Can Go To The Location Of Their Choice, 06/04/2021 15:32:38 06/05/19 22 06/04/2021 COMPR EHENS JOSE DAVID METAB OLIC PANL BUN 14 mg/dL (6-20) Not Available [facility] (Centralized Electronic Ordering - All Locations) Patient Can Go To The Location Of Their Choice, 06/04/2021 15:32:38 06/05/19 22 06/04/2021 COMPR EHENS JOSE DAVID METAB OLIC PANL creatinine 1.0 mg/dL (0.7-1 .2) Not Available [facility] (Centralized Electronic Ordering - All Locations) Patient Can Go To The Location Of Their Choice, 06/04/2021 15:32:38 06/05/1906/04/2021 COMPR EHENS JOSE DAVID METAB OLIC PANL sodium 141 mmol/ L (133-1 45) Not Available [facility] (Centralized Electronic Ordering - All Locations) Patient Can Go To The Location Of Their Choice, 06/04/2021 15:32:38 06/05/1906/04/2021 COMPR EHENS JOSE DAVID METAB OLIC PANL potassium 4.6 mmol/ L (3.6-5 .2) Not Available [facility] (Centralized Electronic Ordering - All Locations) Patient Can Go To The Location Of Their Choice, 06/04/2021 15:32:38 06/05/1906/04/2021 COMPR EHENS JOSE DAVID METAB OLIC PANL chloride 103 mmol/ L (98-10 7) Not Available [facility] (Centralized Electronic Ordering - All Locations) Patient Can Go To The Location Of Their Choice, 06/04/2021 15:32:38 06/05/1906/04/2021 COMPR EHENS JOSE DAVID METAB OLIC PANL bicarbonate 27 mmol/ L (22-29 ) Not Available [facility] (Centralized Electronic Ordering - All Locations) Patient Can Go To The Location Of Their Choice, 06/04/2021 15:32:38 06/05/1906/04/2021 COMPR EHENS JOSE DAVID METAB OLIC PANL anion gap 11 (4-17) Not Available [facility] (Centralized Electronic Ordering - All Locations) Patient Can Go To The Location Of Their Choice, 06/04/2021 15:32:38 06/05/1906/04/2021 COMPR EHENS JOSE DAVID METAB OLIC PANL albumin 4.7 gm/dL (3.4-4 .8) Not Available [facility] (Centralized Electronic Ordering - All Locations) Patient Can Go To The Location Of Their Choice, 06/04/2021 15:32:38 06/05/19 22 06/04/2021 COMPR EHENS JOSE DAVID METAB OLIC PANL calcium 9.9 mg/dL (8.6-1 0.5) Not Available [facility] (Centralized Electronic Ordering - All Locations) Patient Can Go To The Location Of Their Choice, 06/04/2021 15:32:38 06/05/1906/04/2021 COMPR EHENS JOSE DAVID METAB OLIC PANL bilirubin,to krish 0.2 mg/dL (0-1.2 ) Not Available [facility] (Centralized Electronic Ordering - All Locations) Patient Can Go To The Location Of Their Choice, 06/04/2021 15:32:38 06/05/1906/04/2021 COMPR EHENS JOSE DAVID METAB OLIC PANL total protein 6.8 gm/dL (6.2-8 .2) Not Available [facility] (Centralized Electronic Ordering - All Locations) Patient Can Go To The Location Of Their Choice, 06/04/2021 15:32:38 06/05/1906/04/2021 COMPR EHENS JOSE DAVID METAB OLIC PANL Ag ratio 2.2 Not Available [facility] (Centralized Electronic Ordering - All Locations) Patient Can Go To The Location Of Their Choice, 06/04/2021 15:32:38 06/05/1906/04/2021 COMPR EHENS JOSE DAVID METAB OLIC PANL AST 19 U/L (0-40) Not Available [facility] (Centralized Electronic Ordering - All Locations) Patient Can Go To The Location Of Their Choice, 06/04/2021 15:32:38 06/05/1906/04/2021 COMPR EHENS JOSE DAVID METAB OLIC PANL alk phos 64 U/L (40-12 9) Not Available [facility] (Centralized Electronic Ordering - All Locations) Patient Can Go To The Location Of Their Choice, 06/04/2021 15:32:38 06/05/1906/04/2021 COMPR EHENS JOSE DAVID METAB OLIC PANL ALT 44 U/L (0-41) high Not Available [facility] (Centralized Electronic Ordering - All Locations) Patient Can Go To The Location Of Their Choice, 06/04/2021 15:32:38 06/05/19 22 06/04/2021 COMPR EHENS JOSE DAVID METAB OLIC PANL estimated GFR creatinine 95 mL/mi n/1.7 3_M2 Creat inine based estim ated glome rular filtr ation rate (eGFR ) is calcu lated using the Chron ic Kidne y Disea se Epide miolo gy Colla borat ion (CKD- EPI). The CKD-E PI calcu latio n is not valid ated in child brittney (<18 years ), pregn ant woman or in racia l or ethni c subgr oups. Not Available [facility] (Centralized Electronic Ordering - All Locations) Patient Can Go To The Location Of Their Choice, 06/04/2021 15:32:38 06/05/1906/04/2021 LIPID PANEL cholesterol, total 123 mg/dL (<200) Not Available [facility] (Centralized Electronic Ordering - All Locations) Patient Can Go To The Location Of Their Choice, 06/04/2021 15:32:39 06/05/1906/04/2021 LIPID PANEL triglyceride 284 mg/dL (<150) high Fasti ng Not Available [facility] (Centralized Electronic Ordering - All Locations) Patient Can Go To The Location Of Their Choice, 06/04/2021 15:32:39 06/05/1906/04/2021 LIPID PANEL HDL chol 29 mg/dL (>39) low Not Available [facility] (Centralized Electronic Ordering - All Locations) Patient Can Go To The Location Of Their Choice, 06/04/2021 15:32:39 06/05/1906/04/2021 LIPID PANEL LDL cholesterol, calculated 37 mg/dL (0-130 ) Not Available [facility] (Centralized Electronic Ordering - All Locations) Patient Can Go To The Location Of Their Choice, 06/04/2021 15:32:39 03/09/20 22 06/04/2021 LIPID PANEL non HDL cholesterol (calc) 94 mg/dL (<160) Not Available [facility] (Centralized Electronic Ordering - All Locations) Patient Can Go To The Location Of Their Choice, 06/04/2021 15:32:39 06/05/1906/04/2021 URINA RY MICRO ALBUM IN micro-albumi n <12.0 mg/L (<20) The urine micro album in test is desig ezra to monit or renal funct ion. When scree anna for Bence Campbell prote inuri a, urine elect ropho resis is recom sisi d. Not Available [facility] (Centralized Electronic Ordering - All Locations) Patient Can Go To The Location Of Their Choice, 06/04/2021 15:58:53 06/05/1906/04/2021 URINA RY MICRO ALBUM IN malb/creat ratio UNABLE TO CALCUL ATE mg/gm (0-20) Not Available [facility] (Centralized Electronic Ordering - All Locations) Patient Can Go To The Location Of Their Choice, 06/04/2021 15:58:53 06/05/19 22 06/04/2021 URINA RY MICRO ALBUM IN urine creat for micro albumin 163.7 mg/dL Not Available [facility] (Centralized Electronic Ordering - All Locations) Patient Can Go To The Location Of Their Choice, 06/04/2021 15:58:53 06/05/1906/04/2021 HEMOG LOBIN A1C hemoglobin A1C 7.0 % (4.0-5 .6) high MONIT ORING : In known diabe tic patie nts, hemog lobin A1c targe ts shoul d be discu ssed with healt h care provi maria antonia. DIAGN OSTIC USE: The Ameri can [place] Assoc iatio n (ADA) and the World Healt h Organ izati on (WHO) recom mend the use of HbA1c to diagn ose diabe lizbeth using a thres hold of 6.5%. Patie nts who have an HbA1c betwe en 5.7% and 6.4% are consi dered at incre ased risk for devel oping diabe lizbeth in the futur e. CAUTI ON: False ly low HbA1c resul ts may be obser jelani in patie nts with hemol ytic anemi a, homoz ygous forms of abnor mal hemog lobin (e.g. SS, CC, SC), pregn frederic, recen t blood loss or hemog lobin F great er than 7%. Fruct osami ne may be used as an alter donnell test in these cases . REFER ENCE: ADA: [employer] of Medic al Care in [place] 2019, The Journ al of Clini ja and Appli ed Resea rc and Educa tion Volum e 43, Suppl ement 1 Not Available [facility] (Centralized Electronic Ordering - All Locations) Patient Can Go To The Location Of Their Choice, [id number] 06/04/2021 17:17:40 10/28/19 22 10/27/2021 HEMOG LOBIN A1C hemoglobin A1C 7.0 % (4.0-5 .6) high MONIT ORING : In known diabe tic patie nts, hemog lobin A1c targe ts shoul d be discu ssed with healt h care provi maria antonia. DIAGN OSTIC USE: The Ameri can [place] Assoc iatio n (ADA) and the World [facility] iz[facility] (WHO) recom mend the use of HbA1c to diagn ose diabe lizbeth using a thres hold of 6.5%. Patie nts who have an HbA1c betwe en 5.7% and 6.4% are consi dered at incre ased risk for devel oping diabe lizbeth in the futur eCristiano CRAWFORD ON: False ly low HbA1c resul ts may be obser jelani in patie nts with hemol ytic anemi a, homoz ygous forms of abnor mal hemog lobin (e.g. SS, CC, SC), pregn frederic, recen t blood loss or hemog lobin F great er than 7%. Fruct osami ne may be used as an alter donnell test in these cases . REFER ENCE: ADA: [employer] of Medic al Care in [place] 2019, The Journ al of Clini ja and Appli ed Resea rc and Educa tion Volum e 43, Suppl ement 1 Not Available [facility] (Centralized Electronic Ordering - All Locations) Patient Can Go To The Location Of Their Choice, [id number] 10/27/2021 18:14:56 10/28/1910/27/2021 COMPR EHENS JOSE DAVID METAB OLIC PANL glucose 139 mg/dL (70-99 ) high Not Available [facility] (Centralized Electronic Ordering - All Locations) Patient Can Go To The Location Of Their Choice, 10/27/2021 18:19:50 10/28/19 22 10/27/2021 COMPR EHENS JOSE DAVID METAB OLIC PANL BUN 32 mg/dL (6-20) high Not Available [facility] (Centralized Electronic Ordering - All Locations) Patient Can Go To The Location Of Their Choice, 10/27/2021 18:19:50 10/28/1910/27/2021 COMPR EHENS JOSE DAVID METAB OLIC PANL creatinine 1.1 mg/dL (0.7-1 .2) Not Available [facility] (Centralized Electronic Ordering - All Locations) Patient Can Go To The Location Of Their Choice, 10/27/2021 18:19:50 10/28/1910/27/2021 COMPR EHENS JOSE DAVID METAB OLIC PANL sodium 133 mmol/ L (133-1 45) Not Available [facility] (Centralized Electronic Ordering - All Locations) Patient Can Go To The Location Of Their Choice, 10/27/2021 18:19:50 10/28/1910/27/2021 COMPR EHENS JOSE DAVID METAB OLIC PANL potassium 4.2 mmol/ L (3.6-5 .2) Not Available [facility] (Centralized Electronic Ordering - All Locations) Patient Can Go To The Location Of Their Choice, 10/27/2021 18:19:50 10/28/1910/27/2021 COMPR EHENS JOSE DAVID METAB OLIC PANL chloride 92 mmol/ L (98-10 7) low Not Available [facility] (Centralized Electronic Ordering - All Locations) Patient Can Go To The Location Of Their Choice, 10/27/2021 18:19:50 10/28/1910/27/2021 COMPR EHENS JOSE DAVID METAB OLIC PANL bicarbonate 25 mmol/ L (22-29 ) Not Available [facility] (Centralized Electronic Ordering - All Locations) Patient Can Go To The Location Of Their Choice, 10/27/2021 18:19:50 10/28/1910/27/2021 COMPR EHENS JOSE DAVID METAB OLIC PANL anion gap 16 (4-17) Not Available [facility] (Centralized Electronic Ordering - All Locations) Patient Can Go To The Location Of Their Choice, 10/27/2021 18:19:50 10/28/19 22 10/27/2021 COMPR EHENS JOSE DAVID METAB OLIC PANL albumin 5.2 gm/dL (3.4-4 .8) high Not Available [facility] (Centralized Electronic Ordering - All Locations) Patient Can Go To The Location Of Their Choice, 10/27/2021 18:19:50 10/28/1910/27/2021 COMPR EHENS JOSE DAVID METAB OLIC PANL calcium 10.3 mg/dL (8.6-1 0.5) Not Available [facility] (Centralized Electronic Ordering - All Locations) Patient Can Go To The Location Of Their Choice, 10/27/2021 18:19:50 10/28/1910/27/2021 COMPR EHENS JOSE DAVID METAB OLIC PANL bilirubin,to krish 0.6 mg/dL (0-1.2 ) Not Available [facility] (Centralized Electronic Ordering - All Locations) Patient Can Go To The Location Of Their Choice, 10/27/2021 18:19:50 10/28/1910/27/2021 COMPR EHENS JOSE DAVID METAB OLIC PANL total protein 7.6 gm/dL (6.2-8 .2) Not Available [facility] (Centralized Electronic Ordering - All Locations) Patient Can Go To The Location Of Their Choice, 10/27/2021 18:19:50 10/28/1910/27/2021 COMPR EHENS JOSE DAVID METAB OLIC PANL Ag ratio 2.2 Not Available [facility] (Centralized Electronic Ordering - All Locations) Patient Can Go To The Location Of Their Choice, 10/27/2021 18:19:50 10/28/1910/27/2021 COMPR EHENS JOSE DAVID METAB OLIC PANL AST 15 U/L (0-40) Not Available [facility] (Centralized Electronic Ordering - All Locations) Patient Can Go To The Location Of Their Choice, 10/27/2021 18:19:50 10/28/1910/27/2021 COMPR EHENS JOSE DAVID METAB OLIC PANL alk phos 71 U/L (40-12 9) Not Available [facility] (Centralized Electronic Ordering - All Locations) Patient Can Go To The Location Of Their Choice, 10/27/2021 18:19:50 10/28/19 22 10/27/2021 COMPR EHENS JOSE DAVID METAB OLIC PANL ALT 33 U/L (0-41) Not Available [facility] (Centralized Electronic Ordering - All Locations) Patient Can Go To The Location Of Their Choice, 10/27/2021 18:19:50 10/28/1910/27/2021 COMPR EHENS JOSE DAVID METAB OLIC PANL estimated GFR creatinine 82 mL/mi n/1.7 3_M2 Creat inine based estim ated glome rular filtr ation (eGFR ) in adult s is calcu lated using the Natio nal Kidne y Found ation recom sisi d 2020 CKD-E PI equat ion. Estim ates GFR from serum creat inine , age and sex. Not Available [facility] (Centralized Electronic Ordering - All Locations) Patient Can Go To The Location Of Their Choice, 10/27/2021 18:19:50 10/28/1910/27/2021 LIPID PANEL cholesterol, total 110 mg/dL (<200) Not Available [facility] (Centralized [facility] Ordering - All Locations) Patient Can Go To The Location Of Their Choice, 10/27/2021 18:19:52 10/28/1910/27/2021 LIPID PANEL triglyceride 235 mg/dL (<150) high Not Available [facility] ([facility] Ordering - All Locations) Patient Can Go To The Location Of Their Choice, 10/27/2021 18:19:52 10/28/1910/27/2021 LIPID PANEL HDL chol 30 mg/dL (>39) low Not Available [facility] (Centralized Electronic Ordering - All Locations) Patient Can Go To The Location Of Their Choice, 10/27/2021 18:19:52 10/28/1910/27/2021 LIPID PANEL LDL cholesterol, calculated 33 mg/dL (0-130 ) Not Available [facility] (Centralized Electronic Ordering - All Locations) Patient Can Go To The Location Of Their Choice, [id number] 10/27/2021 18:19:52 10/28/19 22 10/27/2021 LIPID PANEL non HDL cholesterol (calc) 80 mg/dL (<160) Not Available [facility] (Centralized Electronic Ordering - All Locations) Patient Can Go To The Location Of Their Choice, [id number] 10/27/2021 18:19:52 10/28/19 22 10/27/2021 URINA RY MICRO ALBUM IN micro-albumi n 19.9 mg/L (<20) The urine micro album in test is desig ezra to monit or renal funct ion. When scree anna for Bence Campbell prote inuri a, urine elect ropho resis is recom sisi d. Not Available [facility] (Centralized Electronic Ordering - All Locations) Patient Can Go To The Location Of Their Choice, [id number] 10/27/2021 21:30:09 10/28/19 22 10/27/2021 URINA RY MICRO ALBUM IN malb/creat ratio 12.5 mg/gm (0-20) Not Available [facility] (Centralized Electronic Ordering - All Locations) Patient Can Go To The Location Of Their Choice, [id number] 10/27/2021 21:30:09 10/28/19 22 10/27/2021 URINA RY MICRO ALBUM IN urine creat for micro albumin 158.8 mg/dL Not Available [facility] (Centralized Electronic Ordering - All Locations) Patient Can Go To The Location Of Their Choice, [id number] 10/27/2021 21:30:09 02/28/20 22 02/27/2022 HEMOG LOBIN A1C hemoglobin A1C 7.1 % (4.0-5 .6) high MONIT ORING : In known diabe tic patie nts, hemog lobin A1c targe ts shoul d be discu ssed with healt h care provi maria antonia. DIAGN OSTIC USE: The Ameri can [place] Assoc iatio n (ADA) and the World Healt h Organ izati on (WHO) recom mend the use of HbA1c to diagn ose diabe lizbeth using a thres hold of 6.5%. Patie nts who have an HbA1c betwe en 5.7% and 6.4% are consi dered at incre ased risk for devel oping diabe lizbeth in the futur e. CAUTI ON: False ly low HbA1c resul ts may be obser jelani in patie nts with hemol ytic anemi a, homoz ygous forms of abnor mal hemog lobin (e.g. SS, CC, SC), pregn frederic, recen t blood loss or hemog lobin F great er than 7%. Fruct osami ne may be used as an alter donnell test in these cases . REFER ENCE: ADA: [employer] Medic al Care in [place] 2019, The Journ al of Clini ja and Appli ed Resea rc and Educa tion Volum e 43, Suppl ement 1 Not Available [facility] (Centralized Electronic Ordering - All Locations) Patient Can Go To The Location Of Their Choice, 02/27/2022 14:48:54 02/28/2002/27/2022 URINA RY MICRO ALBUM IN micro-albumi n 13.5 mg/L (<20) The urine micro album in test is desig ezra to monit or renal funct ion. When scree anna for Bence Campbell prote inuri a, urine elect ropho resis is recom sisi d. Not Available [facility] (Centralized Electronic Ordering - All Locations) Patient Can Go To The Location Of Their Choice, [id number] 02/27/2022 15:02:22 02/28/20 22 02/27/2022 URINA RY MICRO ALBUM IN malb/creat ratio 3.7 mg/gm (0-20) Not Available [facility] (Centralized Electronic Ordering - All Locations) Patient Can Go To The Location Of Their Choice, [id number] 02/27/2022 15:02:22 02/28/20 22 02/27/2022 URINA RY MICRO ALBUM IN urine creat for micro albumin 360.9 mg/dL Not Available [facility] (Centralized Electronic Ordering - All Locations) Patient Can Go To The Location Of Their Choice, [id number] 02/27/2022 15:02:22 02/28/20 22 02/27/2022 COMPR EHENS JOSE DAVID METAB OLIC PANL glucose 176 mg/dL (70-99 ) high Fasti ng Not Available [facility] (Centralized Electronic Ordering - All Locations) Patient Can Go To The Location Of Their Choice, [id number] 02/27/2022 15:12:02/28/20 22 02/27/2022 COMPR EHENS JOSE DAVID METAB OLIC PANL BUN 15 mg/dL (6-20) Not Available [facility] (Centralized Electronic Ordering - All Locations) Patient Can Go To The Location Of Their Choice, [id number] 02/27/2022 15:12:02/28/20 22 02/27/2022 COMPR EHENS JOSE DAVID METAB OLIC PANL creatinine 0.9 mg/dL (0.7-1 .2) Not Available [facility] (Centralized Electronic Ordering - All Locations) Patient Can Go To The Location Of Their Choice, 02/27/2022 15:12:02/28/2002/27/2022 COMPR EHENS JOSE DAVID METAB OLIC PANL sodium 142 mmol/ L (133-1 45) Not Available [facility] (Centralized Electronic Ordering - All Locations) Patient Can Go To The Location Of Their Choice, [id number] 02/27/2022 15:12:02/28/2002/27/2022 COMPR EHENS JOSE DAVID METAB OLIC PANL potassium 4.8 mmol/ L (3.6-5 .2) Not Available [facility] (Centralized Electronic Ordering - All Locations) Patient Can Go To The Location Of Their Choice, [id number] 02/27/2022 15:12:02/28/2002/27/2022 COMPR EHENS JOSE DAVID METAB OLIC PANL chloride 103 mmol/ L (98-10 7) Not Available [facility] (Centralized Electronic Ordering - All Locations) Patient Can Go To The Location Of Their Choice, 02/27/2022 15:12:02/28/2002/27/2022 COMPR EHENS JOSE DAVID METAB OLIC PANL bicarbonate 28 mmol/ L (22-29 ) Not Available [facility] (Centralized Electronic Ordering - All Locations) Patient Can Go To The Location Of Their Choice, 02/27/2022 15:12:02/28/2002/27/2022 COMPR EHENS JOSE DAVID METAB OLIC PANL anion gap 11 (4-17) Not Available [facility] (Centralized Electronic Ordering - All Locations) Patient Can Go To The Location Of Their Choice, [id number] 02/27/2022 15:12:02/28/2002/27/2022 COMPR EHENS JOSE DAVID METAB OLIC PANL albumin 4.8 gm/dL (3.4-4 .8) Not Available [facility] (Centralized Electronic Ordering - All Locations) Patient Can Go To The Location Of Their Choice, [id number] 02/27/2022 15:12:02/28/20 22 02/27/2022 COMPR EHENS JOSE DAVID METAB OLIC PANL calcium 10.5 mg/dL (8.6-1 0.5) Not Available [facility] (Centralized Electronic Ordering - All Locations) Patient Can Go To The Location Of Their Choice, 02/27/2022 15:12:02/28/2002/27/2022 COMPR EHENS JOSE DAVID METAB OLIC PANL bilirubin,to krish 0.6 mg/dL (0-1.2 ) Not Available [facility] (Centralized Electronic Ordering - All Locations) Patient Can Go To The Location Of Their Choice, [id number] 02/27/2022 15:12:02/28/2002/27/2022 COMPR EHENS JOSE DAVID METAB OLIC PANL total protein 7.0 gm/dL (6.2-8 .2) Not Available [facility] (Centralized Electronic Ordering - All Locations) Patient Can Go To The Location Of Their Choice, 02/27/2022 15:12:02/28/2002/27/2022 COMPR EHENS JOSE DAVID METAB OLIC PANL Ag ratio 2.2 Not Available [facility] (Centralized Electronic Ordering - All Locations) Patient Can Go To The Location Of Their Choice, [id number] 02/27/2022 15:12:02/28/2002/27/2022 COMPR EHENS JOSE DAVID METAB OLIC PANL AST 16 U/L (0-40) Not Available [facility] (Centralized Electronic Ordering - All Locations) Patient Can Go To The Location Of Their Choice, 02/27/2022 15:12:02/28/2002/27/2022 COMPR EHENS JOSE DAVID METAB OLIC PANL alk phos 66 U/L (40-12 9) Not Available [facility] (Centralized Electronic Ordering - All Locations) Patient Can Go To The Location Of Their Choice, 02/27/2022 15:12:02/28/20 02/27/2022 COMPR EHENS JOSE DAVID METAB OLIC PANL ALT 28 U/L (0-41) Not Available [facility] (Centralized Electronic Ordering - All Locations) Patient Can Go To The Location Of Their Choice, [id number] 02/27/2022 15:12:09 02/28/20 22 02/27/2022 COMPR EHENS JOSE DAVID METAB OLIC PANL estimated GFR creatinine 110 mL/mi n/1.7 3_M2 Not Available [facility] (Centralized Electronic Ordering - All Locations) Patient Can Go To The Location Of Their Choice, [id number] 02/27/2022 15:12:09 02/28/20 22 02/27/2022 LIPID PANEL cholesterol, total 148 mg/dL (<200) Not Available [facility] ([facility]ized Electronic Ordering - All Locations) Patient Can Go To The Location Of Their Choice, [id number] 02/27/2022 15:12:11 02/28/20 22 02/27/2022 LIPID PANEL triglyceride 181 mg/dL (<150) high Fasti ng Not Available [facility] (Centralized Electronic Ordering - All Locations) Patient Can Go To The Location Of Their Choice, [id number] 02/27/2022 15:12:11 02/28/20 22 02/27/2022 LIPID PANEL HDL chol 44 mg/dL (>39) Not Available [facility] (Centralized Electronic Ordering - All Locations) Patient Can Go To The Location Of Their Choice, [id number] 02/27/2022 15:12:11 02/28/20 22 02/27/2022 LIPID PANEL LDL cholesterol, calculated 68 mg/dL (0-130 ) Not Available [facility] (Centralized Electronic Ordering - All Locations) Patient Can Go To The Location Of Their Choice, [id number] 02/27/2022 15:12:11 02/28/20 22 02/27/2022 LIPID PANEL non HDL cholesterol (calc) 104 mg/dL (<160) Not Available [facility] (Centralized Electronic Ordering - All Locations) Patient Can Go To The Location Of Their Choice, [id number] 02/27/2022 15:12:11 11/07/19 23 11/06/2022 HEMOG LOBIN A1C hemoglobin A1C 6.7 % (4.0-5 .6) high MONIT ORING : In known diabe tic patie nts, hemog lobin A1c targe ts shoul d be discu ssed with healt h care provi maria antonia. DIAGN OSTIC USE: The Ameri can [place] Assoc iatio n (ADA) and the World Healt h Organ izati on (WHO) recom mend the use of HbA1c to diagn ose diabe lizbeth using a thres hold of 6.5%. Patie nts who have an HbA1c betwe en 5.7% and 6.4% are consi dered at incre ased risk for devel oping diabe lizbeth in the futur e. CAUTI ON: False ly low HbA1c resul ts may be obser jelani in patie nts with hemol ytic anemi a, homoz ygous forms of abnor mal hemog lobin (e.g. SS, CC, SC), pregn frederic, recen t blood loss or hemog lobin F great er than 7%. Fruct osami ne may be used as an alter donnell test in these cases . REFER ENCE: ADA: [employer] of Medic al Care in [place] 2019, The Journ al of Clini ja and Appli ed Resea [facility] and Educa tion Volum e 43, Suppl ement 1 Not Available [facility] (Centralized Electronic Ordering - All Locations) Patient Can Go To The Location Of Their Choice, 11/06/2022 14:51:56 11/07/1911/06/2022 COMPR EHENS JOSE DAVID METAB OLIC PANL glucose 144 mg/dL (70-99 ) high Fasti ng Not Available [facility] (Centralized Electronic Ordering - All Locations) Patient Can Go To The Location Of Their Choice, 11/06/2022 16:51:50 11/07/1911/06/2022 COMPR EHENS JOSE DAVID METAB OLIC PANL BUN 13 mg/dL (6-20) Not Available [facility] (Centralized Electronic Ordering - All Locations) Patient Can Go To The Location Of Their Choice, 11/06/2022 16:51:50 11/07/1911/06/2022 COMPR EHENS JOSE DAVID METAB OLIC PANL creatinine 0.8 mg/dL (0.7-1 .2) Not Available [facility] (Centralized Electronic Ordering - All Locations) Patient Can Go To The Location Of Their Choice, 11/06/2022 16:51:50 11/07/1911/06/2022 COMPR EHENS JOSE DAVID METAB OLIC PANL sodium 142 mmol/ L (133-1 45) Not Available [facility] (Centralized Electronic Ordering - All Locations) Patient Can Go To The Location Of Their Choice, 11/06/2022 16:51:50 11/07/1911/06/2022 COMPR EHENS JOSE DAVID METAB OLIC PANL potassium 4.6 mmol/ L (3.6-5 .2) Not Available [facility] (Centralized Electronic Ordering - All Locations) Patient Can Go To The Location Of Their Choice, 11/06/2022 16:51:50 11/07/1911/06/2022 COMPR EHENS JOSE DAVID METAB OLIC PANL chloride 102 mmol/ L (98-10 7) Not Available [facility] (Centralized Electronic Ordering - All Locations) Patient Can Go To The Location Of Their Choice, 11/06/2022 16:51:50 11/07/1911/06/2022 COMPR EHENS JOSE DAVID METAB OLIC PANL bicarbonate 27 mmol/ L (22-29 ) Not Available [facility] (Centralized Electronic Ordering - All Locations) Patient Can Go To The Location Of Their Choice, 11/06/2022 16:51:50 11/07/1911/06/2022 COMPR EHENS JOSE DAVID METAB OLIC PANL anion gap 13 (4-17) Not Available [facility] (Centralized Electronic Ordering - All Locations) Patient Can Go To The Location Of Their Choice, 11/06/2022 16:51:50 11/07/1911/06/2022 COMPR EHENS JOSE DAVID METAB OLIC PANL albumin 4.6 gm/dL (3.4-4 .8) Not Available [facility] (Centralized Electronic Ordering - All Locations) Patient Can Go To The Location Of Their Choice, 11/06/2022 16:51:50 11/07/1911/06/2022 COMPR EHENS JOSE DAVID METAB OLIC PANL calcium 10.4 mg/dL (8.6-1 0.5) Not Available [facility] (Centralized Electronic Ordering - All Locations) Patient Can Go To The Location Of Their Choice, 11/06/2022 16:51:50 11/07/1911/06/2022 COMPR EHENS JOSE DAVID METAB OLIC PANL bilirubin,to krish 0.6 mg/dL (0-1.2 ) Not Available [facility] (Centralized Electronic Ordering - All Locations) Patient Can Go To The Location Of Their Choice, 11/06/2022 16:51:50 11/07/1911/06/2022 COMPR EHENS JOSE DAVID METAB OLIC PANL total protein 6.7 gm/dL (6.2-8 .2) Not Available [facility] (Centralized Electronic Ordering - All Locations) Patient Can Go To The Location Of Their Choice, 11/06/2022 16:51:50 11/07/1911/06/2022 COMPR EHENS JOSE DAVID METAB OLIC PANL Ag ratio 2.2 Not Available [facility] (Centralized Electronic Ordering - All Locations) Patient Can Go To The Location Of Their Choice, 11/06/2022 16:51:50 11/07/1911/06/2022 COMPR EHENS JOSE DAVID METAB OLIC PANL AST 24 U/L (0-40) Not Available [facility] (Centralized Electronic Ordering - All Locations) Patient Can Go To The Location Of Their Choice, 11/06/2022 16:51:50 11/07/1911/06/2022 COMPR EHENS JOSE DAVID METAB OLIC PANL alk phos 57 U/L (40-12 9) Not Available [facility] (Centralized Electronic Ordering - All Locations) Patient Can Go To The Location Of Their Choice, 11/06/2022 16:51:50 11/07/1911/06/2022 COMPR EHENS JOSE DAVID METAB OLIC PANL ALT 36 U/L (0-41) Not Available [facility] (Centralized Electronic Ordering - All Locations) Patient Can Go To The Location Of Their Choice, 11/06/2022 16:51:50 11/07/1911/06/2022 COMPR EHENS JOSE DAVID METAB OLIC PANL estimated GFR creatinine 110 mL/mi n/1.7 3_M2 Creat inine based estim ated glome rular filtr ation (eGFR ) in adult s is calcu lated using the Natio nal Kidne y Found ation recom sisi d 2020 CKD-E PI equat ion. Estim ates GFR from serum creat inine , age and sex. Not Available [facility] (Centralized Electronic Ordering - All Locations) Patient Can Go To The Location Of Their Choice, 11/06/2022 16:51:50 11/07/1911/06/2022 LIPID PANEL cholesterol, total 215 mg/dL (<200) high Not Available [facility] (Centralized Electronic Ordering - All Locations) Patient Can Go To The Location Of Their Choice, 11/06/2022 16:51:52 11/07/1911/06/2022 LIPID PANEL triglyceride 195 mg/dL (<150) high Fasti ng Not Available [facility] (Centralized Electronic Ordering - All Locations) Patient Can Go To The Location Of Their Choice, 11/06/2022 16:51:52 11/07/19 23 11/06/2022 LIPID PANEL HDL chol 41 mg/dL (>39) Not Available [facility] (Centralized Electronic Ordering - All Locations) Patient Can Go To The Location Of Their Choice, 11/06/2022 16:51:52 11/07/1911/06/2022 LIPID PANEL LDL cholesterol, calculated 135 mg/dL (0-130 ) high Not Available [facility] (Centralized Electronic Ordering - All Locations) Patient Can Go To The Location Of Their Choice, 11/06/2022 16:51:52 11/07/1911/06/2022 LIPID PANEL non HDL cholesterol (calc) 174 mg/dL (<160) high Not Available [facility] (Centralized Electronic Ordering - All Locations) Patient Can Go To The Location Of Their Choice, 11/06/2022 16:51:52 11/07/1911/06/2022 URINA RY MICRO ALBUM IN micro-albumi n <12.0 mg/L (<20) The urine micro album in test is desig ezra to monit or renal funct ion. When scree anna for Bence Campbell prote inuri a, urine elect ropho resis is recom sisi d. Not Available [facility] (Centralized Electronic Ordering - All Locations) Patient Can Go To The Location Of Their Choice, 11/06/2022 18:12:03 11/07/19 23 11/06/2022 URINA RY MICRO ALBUM IN malb/creat ratio UNABLE TO CALCUL ATE mg/gm (0-20) Not Available [facility] (Centralized Electronic Ordering - All Locations) Patient Can Go To The Location Of Their Choice, [id number] 11/06/2022 18:12:03 11/07/19 23 11/06/2022 URINA RY MICRO ALBUM IN urine creat for micro albumin 305.8 mg/dL Not Available [facility] (Centralized Electronic Ordering - All Locations) Patient Can Go To The Location Of Their Choice, [id number] 11/06/2022 18:12:03 Result Notes None recorded. Problems Name Problem SNOMED Code Status Onset Date Resolution Date Notes Provider Name and Address Organization Details Recorded Time Diabetes mellitus [id number] Kash Harrell RDN, LDN, [address] [place], [address], [facility] 4 13:12:25 Type 2 diabetes mellitus without complication [id number] Kash Amaya MD [address] [place] [address] [place], [address], [facility] 6 19:07:08 Hyperlipidemia [id number] Kash Amaya MD [address] [place] [address] [place], [address], [facility] 6 19:07:08 Benign essential hypertension [id number] Kash Amaya MD [address] [place] [address] [place], [address], [facility] 5 09:04:43 Fatigue [id number] Kash Amaya MD [address] [place] [address] [place], [address], [facility] 5 09:04:43 Polyuria [id number] Kash Amaya MD [address] [place] [address] [place], [address], [facility] 5 17:08:19 Liver enzymes outside reference range [id number] Kash Amaya MD [address] [place], [place] [address]J[place], [address], [facility] 6 19:07:08 Problem Notes None recorded. Procedures Surgical History Date Name Laterality Status Provider Name and Address Organization Details Recorded Time 05/06/19 21 reconstruction of anterior cruciate ligament of knee joint completed Anju Camp RN [facility] 11/19/2020 14:04:54 08/16/19 20 Pen Teaching completed Osman Amaya MD [address] [place] [address], [phone], [facility] 08/16/2019 16:02:53 01/07/20 19 Pen Teaching completed Osman Amaya MD [address] [place] [address], [phone], [facility] 01/06/2019 14:25:42 12/08/19 19 colonoscopy completed Rachael Anthony LPN [facility] 01/06/2019 14:12:11 05/25/19 19 Pen Teaching completed Osman Amaya MD [address] [place] [address], [phone], [facility] 05/25/2018 17:00:53 09/16/19 18 Pen Teaching completed Osman Amaya MD [address] [place] [address], [phone], [facility] 09/15/2017 17:30:45 05/25/19 18 Pen Teaching completed Osman Amaya MD [address] [place] [address], [phone], [facility] 05/25/2017 15:28:56 01/07/20 17 Pen Teaching completed Osman Amaya MD [address] [place] [address], [phone], [facility] 01/06/2017 16:40:09 10/17/19 17 Pen Teaching completed Osman Amaya MD [address] [place] [address], [phone], [facility] 10/16/2016 11:52:36 07/23/19 17 Pen Teaching completed Osman Amaya MD [address] [place] [address], [phone], [facility] 07/22/2016 10:39:35 01/29/20 16 Pen Teaching completed Radha Henson LPN [facility] 01/29/2016 17:48:36 12/20/19 16 Pen Teaching completed Radha Henson LPN [facility] 12/20/2015 17:25:20 Imaging Results None recorded. Procedure Notes None recorded. Medical Equipment None Reported. Allergies No known drug allergies Medications Name Sig Start Date Stop Date Status Note LastModified by Organization Details LastModified Time atorvasta tin 40 mg tablet TAKE 1 TABLET DAILY 01/24 completed VV 1 nv labs 1 01/25/20 21 confirme d on rosuvast atin Not Available Not Available Not Available doxycycli ne hyclate 100 mg capsule TAKE 2 CAPSULES BY MOUTH ONCE 11/09 completed Not Available Not Available Not Available atorvasta tin 20 mg tablet TAKE 1 TABLET by mouth DAILY 04/22 completed LV 08/16/19, [place] 04/15/20, labs 05/10/19 Not Available Not Available Not Available atorvasta tin 10 mg tablet Take 1 tablet every day by oral route. 01/06 completed Not Available Not Available Not Available metoprolo l succinate ER 50 mg tablet,ex tended release 24 hr TAKE 1 TABLET TWICE A DAY active Not Available Not Available No t Available citalopra m 10 mg tablet TAKE 1 TABLET BY MOUTH EVERY DAY 11/09 completed Not Available Not Available Not Available ondansetr on HCl 4 mg tablet Take 1 tablet twice a day by oral route as needed for 30 days. 04/29 completed Not Available Not Available Not Available glipizide ER 5 mg tablet, extended release 24 hr Take 1 tablet (5 mg) with 2.5 mg tablet to equal 7.5 mg by oral route daily in the evening 01/28 completed Not Available Not Available Not Available Wellbutri n SR 150 mg tablet, 12 hr sustained -release Take 1 tablet every day by oral route. 09/15 completed Not Available Not Available Not Available phentermi ne 37.5 mg tablet Take 1 tablet every day by oral route for 30 days. 05/25 completed Not Available Not Available Not Available aspirin 81 mg tablet,de layed release Take 1 tablet every day by oral route. 10/31 completed Not Available Not Available Not Available citalopra m 20 mg tablet TAKE 1 TABLET DAILY active Not Available Not Available No t Available Humalog U-100 Insulin 100 unit/mL subcutane ous solution INJECT 107 UNITS PER DAY UNDER THE SKIN VIA INSULIN PUMP active LV 11/19/20, NV not schedule d, labs 10/16/20 Not Available Not Available Not Available glipizide ER 2.5 mg tablet, extended release 24 hr Take 1 tablet (2.5 mg) along with 5 mg tablet to equal 7.5 mg by oral route every evening. 01/28 completed Not Available Not Available Not Available losartan 25 mg tablet Take 1 tablet every day by oral route. active Not Available Not Available No t Available metoprolo l tartrate 50 mg tablet Take 1 tablet twice a day by oral route. 11/09 completed Not Available Not Available Not Available docusate sodium 100 mg capsule TAKE 1 CAPSULE BY MOUTH 2 TIMES A DAY NEEDED FOR CONSTIPA TION 11/09 completed Not Available Not Available Not Available omeprazol e 20 mg capsule,d elayed release Take 1 capsule every day by oral route. active Not Available Not Available No t Available hydrochlo rothiazid e 25 mg tablet Take 1 tablet every day by oral route. 05/04 completed on hold for now until sees PCP 11/05/21 Not Available Not Available Not Available Novolog U-100 Insulin aspart 100 unit/mL subcutane ous solution INJECT 107 UNITS SUBCUTAN EOUSLY DAILY VIA INSULIN PUMP active Not Available Not Available No t Available pioglitaz one 30 mg tablet Take one tablet by mouth daily 05/28 completed LV 10/16/16, labs 09/21/16, NV 01/06/17 Not Available Not Available Not Available losartan 100 mg tablet TAKE 1 TABLET DAILY active Not Available Not Available No t Available metformin ER 500 mg tablet,ex tended release 24 hr TAKE 2 TABLETS TWICE A DAY active Not Available Not Available No t Available amoxicill in 875 mg-potass ium clavulana te 125 mg tablet TAKE 1 TABLET BY MOUTH EVERY 12 HOURS FOR 7 DAYS active Not Available Not Available No t Available amoxicill in 500 mg-potass ium clavulana te 125 mg tablet TAKE 1 TABLET BY MOUTH EVERY 8 HOURS FOR 7 DAYS active Not Available Not Available No t Available oxycodone 5 mg tablet TAKE 1 TABLET BY MOUTH EVERY 4 TO 6 HOURS NEEDED FOR PAIN (DO NOT DRIVE WHILE ON THIS MEDICATI ON) 11/09 completed Not Available Not Available Not Available metformin ER 750 mg tablet,ex tended release 24 hr Take 1 tablet twice a day by oral route. active Not Available Not Available No t Available rosuvasta tin 5 mg tablet TAKE 1 TABLET DAILY active Not Available Not Available No t Available rosuvasta tin 40 mg tablet TAKE 1 TABLET DAILY 09/21 completed pt not taking now 11/09/22 Not Available Not Available Not Available Wellbutri n XL 300 mg 24 hr tablet, extended release Take 1 tablet every day by oral route. 05/25 completed Not Available Not Available Not Available tadalafil 10 mg tablet TAKE 1 TABLET BY MOUTH DAILY 1 HOUR BEFORE SEXUAL ACTIVITY active Not Available Not Available No t Available saw palmetto taken daily 05/25 completed Not Available Not Available Not Available multivita min one tablet daily active Not Available Not Available No t Available Januvia 100 mg tablet Take 1 tablet every day by oral route. 01/[address] Amaya stopped 05/2017 d/t upset stomach. dg, 05/25/18 Not Available Not Available Not Available Lantus Solostar U-100 Insulin 100 unit/mL (3 mL) subcutane ous pen Inject 50 units subcutan eously once daily 04/13 completed switched to [facility] Not Available Not Available Not Available Humalog KwikPen (U-100) Insulin 100 unit/mL subcutane ous Inject 107 units subcutan eously daily via insulin pump 10/16 completed Not Available Not Available Not Available glipizide ER 5 mg 24 hr tablet,ex tended release Take 1 tablet every day by oral route. 10/08 completed Not Available Not Available Not Available OneTouch Verio test strips USE TO TEST BLOOD GLUCOSE 4TIMES A DAY active Not Available Not Available No t Available Vascepa 1 gram capsule Take 2 capsules twice a day by oral route. 05/04 completed by cardiolo gist 11/2020, on hold until sees PCP 11/05/21 Not Available Not Available Not Available Victoza 3-Tanmay 0.6 mg/0.1 mL (18 mg/3 mL) subcutane ous pen injector Inject 1.2 mg subcut daily. If nausea, vomiting , diarrhea or cramping occur reduce dose to 0.6 mg daily. 10/16 completed Stopped 2-3 weeks ago Not Available Not Available Not Available Jardiance 10 mg tablet Take 1 tablet every day by oral route. 08/15 completed Not Available Not Available Not Available Trulicity 0.75 mg/0.5 mL subcutane ous pen injector Inject 0.5 mL every week by subcutan eous route for 30 days. 01/28 completed Not Available Not Available Not Available OneTouch Verio Flex Meter USE DIRECTED active Not Available Not Available No t Available Soliqua 100/33 100 unit-33 mcg/mL subcutane ous insulin pen Start at 40 units daily, may go up to 45 units if blood sugar elevates , call office if uses 50 units daily. 05/28 completed Not Available Not Available Not Available Ozempic 0.25 mg or 0.5 mg (2 mg/1.5 mL) subcutane ous pen injector Inject 0.5 mg every week by subcutan eous route. 04/29 completed Not Available Not Available Not Available Toujeo Max U-300 SoloStar 300 unit/mL (3 mL) subcutane ous insulin pen Inject 54 units SC daily in PM 08/15 completed Not Available Not Available Not Available Dexcom G6 Sensor device USE DIRECTED ; CHANGE EVERY 10 DAYS. active not using now 11/09/22 Not Available Not Available Not Available Dexcom G6 Transmitt er device USE DIRECTED , CHANGE EVERY 3 MONTHS active not using now 11/09/22 Not Available Not Available Not Available OneTouch Delica Plus Lancet 33 gauge USE TO TEST BLOOD GLUCOSE 4TIMES A DAY active Not Available Not Available No t Available Paxlovid 300 mg (150 mg x 2)-100 mg tablets in a dose pack TAKE 3 TABLETS BY MOUTH TWICE A DAY FOR 5 DAYS 11/09 completed Not Available Not Available Not Available Vitals Date Recorded Body height Body mass index (BMI) Body weight Heart rate Systolic blood pressure Diastolic blood pressure Provider Name and Address Organization Details Last Updated DateTime 2 185.42 cm 35.7 kg/m2 336627. 38 g 76 /min 132 mm[Hg] 62 mm[Hg] Anju Camp RN [facility] 2 14:16:32 Date Recorded Body height Body mass index (BMI) Body weight Heart rate Systolic blood pressure Diastolic blood pressure Provider Name and Address Organization Details Last Updated DateTime 2 185.42 cm 33.2 kg/m2 139306. 56 g 88 /min 126 mm[Hg] 88 mm[Hg] Shahana Swan LPN [facility] 2 10:39:17 Date Recorded Body height Body mass index (BMI) Body weight Heart rate Systolic blood pressure Diastolic blood pressure Provider Name and Address Organization Details Last Updated DateTime 3 185.42 cm 26.2 kg/m2 17287.4 4 g 63 /min 133 mm[Hg] 79 mm[Hg] Shahana Swan PERMANENT MOLD SUPERVISOR [facility] 3 14:06:34 Date Recorded Body height Body mass index (BMI) Body weight Heart rate Systolic blood pressure Diastolic blood pressure Provider Name and Address Organization Details Last Updated DateTime 3 185.42 cm 26.7 kg/m2 83026.6 6 g 76 /min 132 mm[Hg] 85 mm[Hg] Shahana Swan [facility] 3 15:51:36 Social History Question Answer Notes LastModified by Organizat ion Details LastModified Time Tobacco Smoking Status Never Smoker Maricarmen Dunn RN, BSN, [address], [address], [facility] 04/19/2014 13:16:58 What Is Your Level Of Alcohol Consumption? Occasional Information not available 05/04/2022 Do You Wear A Helmet When Biking? Yes Information not available 11/19/2020 What Is Your Level Of Caffeine Consumption? Moderate 2 Large Iced Coffees A Day Information not available 11/19/2020 Are You Currently Employed? Yes Information not available 11/19/2020 Which Illicit Or Recreational Drugs Have You Used? 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 No Information not available 11/19/2020 Are There Any Guns Present In Your Home? No Information not available 11/19/2020 Do You Use Insect Repellent Routinely? Yes Information not available 11/19/2020 DM Disease Process Not Assessed Information not available 07/12/2019 Nutrition Post-grasps [place] 10/11/19 Information not available 10/15/2019 Physical Activity Post-grasps [place] 10/11/19 Information not available 07/12/2019 Medications Post-shows Competency 10/11/19 Information not available 07/12/2019 Monitoring Post-shows Competency 10/11/19 Information not available 07/12/2019 Acute Complications Post-shows Competency 10/11/19 Information not available 07/12/2019 Chronic Complications Post-shows Competency 10/11/19 Information not available 10/15/2019 Coping Post-shows Competency 10/11/19 Information not available 07/12/2019 Behavior Change Post-shows Competency 10/11/19 Information not available 07/12/2019 DSME Plan Goal Using Medications Safely: Adjusted The Following Basal Rates: 12 Am- 2.3 U/hr (increased) 6 Am- 2.2 (stayed The Same, Added) 3 Pm- 2.3 U/hr (increased And Added). Information not available 07/12/2019 DSME Plan Goal Success 100%-always: Information not available 07/12/2019 DSME Plan Goal Evaluation: 10/11/2019 Information not available 10/15/2019 DSME Plan Initiated: 01/11/2014 MNT X 3-5; Dates Seen: 01/11; 03/15; DSME DAtes Seen: 04/12/19; 07/12/19; 10/11/19 [email or web address] Information not available 01/11/2014 DSME Plan Status In Progress - msobil Sandrar jaspreet not available 01/11/2014 Diabetes Ed Classes Discussed Patient Not Appropriate Type 2 On Pump And Sensor. Information not available 07/12/2019 What Was The Date Of Your Most Recent Tobacco Screening? 05/25/2018 Information not available 10/19/2018 How Many Children Do You Have? 2 Information not available 11/19/2020 Are There Any Occupational Health Risks Where You Work? Yes Information not available 11/19/2020 What Is Your Relationship Status? Information not available 11/19/2020 Do You Use Your Seat Belt Or Car Seat Routinely? Yes Information not available 11/19/2020 Do You Have Smoke And Carbon Monoxide Detectors In Your Home? Yes Information not available 11/19/2020 Are You Passively Exposed To Smoke? No Information not available 11/19/2020 Do You Use Any Illicit Or Recreational Drugs? No Information not available 11/19/2020 Do You Use Sunscreen Routinely? Yes Information not available 11/19/2020 Do You Or Have You Ever Used Any Other Forms Of Tobacco Or Nicotine? No Information not available 11/19/2020 Sex: Unknown Functional Status None recorded. Mental Status None recorded. Family History Relationship Description Onset Age of this Age Resolved Age Notes LastModified by Organization Details LastModified Time Father Diverticular disease [email or web address] Not available 04/24/2015 17:06:32 Notes:Dad is 66 - Mom is 65. pepto bismol TID Sister is 34 Kids- 11 (Ang) and 8 (Hussain). No diabetes in the family. Maternal aunt has diabetes (older at onset). 09/13 - no changes. parents/sister/kids all 01/14- no changes. Kids are good Ang is 13 and hussain is 10. 08/15: all healthy 04/18: Mom/Dad had COVID but no big deal. Thinks got from [facility] (95) at her assisted care facility. 11/16: Parents OK- got vaccianted. Kids good (start Wednesday- with masks). Son prefers home rather than in-person school. 05/20: family OK. Daughter/ got COVID. Pt. and son didn't (same house) 11/17: All OK. 05/21: Kids good. Medical History Condition Response Diabetes Type II Y Immunizations Vaccine Type Date Status Note Provider Nam e and Address Organization Details Recorded Time influenza, unspecified formulation 6 completed KARMEN Álvarez, [facility] 01/29/2016 16:30:48 Influenza, split virus, quadrivalent, PF 9 completed Not Available [facility] 04/15/2019 02:37:59 Influenza, split virus, quadrivalent, preservative 0 completed Aarti Patterson LPN null, [facility] 04/22/2020 13:05:23 COVID-19, mRNA, LNP-S, PF, 30 mcg/0.3 mL dose 1 completed Anju Camp RN null, [facility] 11/19/2020 13:58:37 COVID-19, mRNA, LNP-S, PF, 30 mcg/0.3 mL dose 1 completed Anju Camp RN null, [facility] 11/19/2020 13:58:48 COVID-19, mRNA, LNP-S, PF, 30 mcg/0.3 mL dose 1 completed Anju Camp RN null, [facility] 04/29/2021 14:09:26 Influenza, split virus, quadrivalent, preservative 1 completed Anju Camp RN null, [facility] 04/29/2021 14:09:39 COVID-19, mRNA, LNP-S, PF, 30 mcg/0.3 mL dose 2 completed hSahana Swan LPN null, [facility] 10/31/2021 10:34:44 Past Encounters Encounter ID Performer Location Encounter Start Date Encounter Closed Date Diagnosis/Indication Diagnosis SNOMED-CT Code Diagnosis ICD10 Code Diagnosis Note [id number] [address] [address] 01/11/2014 14:32:21 01/11/2014 16:25:32 Diabetes mellitus [id number] [address] [place] [address] 03/15/2014 15:35:09 03/16/2014 16:40:54 Diabetes mellitus [id number] Emily Ordaz Endocrino logy, [address] [address] 04/19/2014 12:52:06 04/19/2014 14:29:40 Type 2 diabetes mellitus without complication [id number] Since August 2013. On metformin and glipizide. He has not seen big impact from metformin (1500 mg at present). Glipizide 5 bid added. AM values not quite at goal and he reports some lows happening mid-aftern oon. Might be worth considerin g other options: 1) trial of higher dose of metformin with decrease in glipizide 2) replace glipizide with newer med (could try incretin or possibly other choices of DPP-IV or SGLT2) 3) replace metformin with newer meds. Also sees Delores Lancaster ([facility] on DPM). Hyperlipidemia [id number] On atorva 10 mg but LDL at time of dx of diabetes was 180. Pt. recalls being around 100. May need slight increase to 20 mg if still over 100 mg/dl. Benign ess ential hypertension [id number] On metoprolol and HCTZ. Was on lisinopril and had cough. Switched (? to [facility]) but had anxiety attacks. On HCTZ and metoprolol . Fatigue [id number] Patient reports snoring. suggest sleep eval. [id number] Endocrino logy, [address] [address] 07/25/2014 15:22:57 07/25/2014 16:49:55 Type 2 diabetes mellitus without complication [id number] Since August 2013. On metformin and glipizide (5 at HS). Changed last time with increase in metformin to max and decrease in glipizide to 5 at HS. AM values still a bit high but also some other high values during day. AM values not quite at goal. His a1c is at goal so could monitor more but would like to get AM values a bit better. Try adding 2.5 to glipizide at night and see if improves. He has not been exercising last few weeks- if he starts being more active and notices any lows during the day, he should go back to 5 mg glipizide at night. Sees Delores Lancaster ([facility] on DPM). Polyuria [id number] He rep orts this as being very disturbing and problemati c to him. 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 Given a1c at target, seems unusual that his sx of polyuria should be persisting . He's also gone off HCTZ and seen no benefit. Similarly, stopping caffeine did not make any difference . Although unlikely, will check urine and serum for osmolality to asses for diabetes insipidus. If not present, may want to consider either Urology evaluation or medication trial. [id number] Osman Amaya MD Endocrino logy, [address] [address] 04/24/2015 16:28:43 04/24/2015 17:37:50 Type 2 diabetes mellitus without complication [id number] E11.9 T2DM on glip (7.5) and metformin. Has had excellent a1c values and could be followed every 6 months but he is also changing diet (currently on low CHO) and very interested in trying to reduce meds. As a result, will suggest he continue to have a1c's checked every 3 months to see progress/i mpact of lifestyle and weight change and possible med changes on a1c values. Hyperlipidemia 51598111 E78.5 On atorva 10 mg with LDL from 11/2014 at 85. However, TG were up over 300 (higher than in past) and HDL was 34 in 12/11. But he is dieting (low CHO) and trying to exercise. He has been going to gym and has lost some weight. Suggest update labs- If TG are still up, could consider trial of Crestor instead of atorva (especiall y given high ALT of 71 in 12/11). Liver enzy mes outside reference range [id number] R94.5 Minor although ALT was at 71 (normal AST) in 12/11 which was higher than previous in 07/11 (40s). Would like to make sure that, even with excellent a1c, he doesn't have significan t fatty liver disease that needs attention. Follow CMP with LFTs every 3 months for now. [id number] Omsan Amaya MD Endocrino logy, [address] [address] 10/09/2015 16:37:16 10/09/2015 17:45:00 Uncontrolled type 2 diabetes mellitus [id number] E11.65 At goal but a1c creeping up with additional problem of increasing LFTs (has high TG). Discussed concepts of insulin resistance , fatty liver and possible approaches including insulin sensitizin g measures (lifestyle ) and decreasing resistance (addressin g possible sleep apnea- he never went for study) and possible use of incretin meds. Also potential that glipizide not working sufficient ly and potential benefits of insulin but other options (incretins ) might help with glucose control and weight. Pt wants to see if trulicity covered. Snoring symptoms [id number] 00 R06.83 Didn't get sleep study- willing to do now. Mixed hyperlipidemia 267 414696 E78.2 On atorva 10 with LDL OK but high TG (over 300) Liver func tion tests outside reference range 190609904 R94.5 Likely fatty liver. Would like to see if improved glucose control would help. May also consider increase in atorvastat in (only on 10 mg) to help with TG. [id number] Radha Henson LPN Endocrino logy, [address] [address] 12/20/2015 14:22:58 02/17/2016 09:43:01 Uncontrolled type 2 diabetes mellitus [id number] E11.65 Patient in for nurse visit - Bruna August NP assisted - reviewed blood sugar log - Lantus dose increased from 10 units to 16 units daily - patient will let us know by patient portal blood sugars in next few days. [id number] Osman Amaya MD Endocrino logy, [address] [address] 01/29/2016 16:04:24 01/29/2016 17:42:19 Uncontrolled type 2 diabetes mellitus [id number] E11.65 Was at goal (6.7 in 12/12) although a1c creeping upTried on Trulicity onstead of glipizide but couldn't tolerate.W ent on Lantus and now at 28 units at HS with high numbers during day- often after meals well over 220-300 (per patient- meter download is incomplete because he has 2nd meter) . Choices include:- mealtime insulin- SGLT2 inhibitor May be worth considerin g whether he may be CALI- check AB and c-peptide when sugar is high. Has had evidence of insulin resistance , (fatty liver, sleep apnea) Snoring symptoms [id number] 00 R06.83 Sleep study shows apnea but patient says was only mild .Levy l try to find out severity. CPAP would not be covered until deductible used up. Mixed hyperlipidemia 267 713887 E78.2 On atorva 10 with LDL OK but high TG (over 300) Liver func tion tests outside reference range 152233634 R94.5 Likely fatty liver. Will update labs to see if any changeMay also consider increase in atorvastat in (only on 10 mg) to help with TG. [id number] JAMES BorgesN, RN, CPT, CDE DM Education , [address] [address] 02/26/2016 13:31:51 03/11/2016 16:06:24 Type 2 diabetes mellitus without complication [id number] E11.9 [id number] Osman Amaya MD Endocrino logy, [address] [address] 07/22/2016 09:54:31 07/22/2016 11:13:28 Uncontrolled type 2 diabetes mellitus [id number] E11.65 A1c excellent at 6.5% but having significan t weight gain (Humalog added after s/e on Trulicity) . Will try low dose Victoza (0.6) and give Lantus at night (AM values still high). Use half of what scale (table) says to use for Humalog for now. Other choices include SGLT2 inhibitor or combinatio n lantus/lix i (Soliqua) Fatty liver improving and sleep apnea being treated. - See Suzie in 6 weeks. If doing well on Victoza, try to mazimize that med and decrease/d iscontinue Humalog. If not tolerating , consider trial of Soliqua.Ot herwise, consider trial of SGLT2 (Jardiance )- be aware he is concerned about polyuria. Mixed hyperlipidemia 267 702240 E78.2 On atorva 10 with LDL OK but high TG (over 300) Liver func tion tests outside reference range 795459628 R94.5 Improving. Likely fatty liver. Monitor labs to see if any change [id number] Osman Amaya MD Endocrino logy, [address] [address] 10/16/2016 11:01:58 10/16/2016 12:42:32 Mixed hyperlipidemia 398068535 E78.2 On atorva 10 with LDL OK but high TG (over 300). If strategies to improve AM glucose and fatty liver don't improve TG, may want to consider change to rosuvastat in (10) Liver func tion tests outside reference range 941059372 R94.5 MIld.Likel y fatty liver. Monitor labs to see if any change. Hope to see if pioglitazo ne helps Type 2 gilbert betes mellitus without complication 221283273 E11.9 A1c excellent under 7% but AM sugars a bit high and of some concern. Also having persistent increase in LFTs. On metformin, Lantus (HS) and Humalog (scale). Tried Trulicity and Victoza but couldn't tolerate (OK at low dose -0.6 but nothing higher) and pt. didn't see much impact on sugars. Taking Lantus at night but AM values still high. Stay on same scale (table) for Humalog. Given persistent increase in LFTs with high TG and AM sugars that are above target, would like to try med to assist these areas and improve insulin sensitivit y.Can't tolerate incretin class. DPP-IV targets post-prand ial more. Could consider SGLT2 drugs but excess urination and risk for ketosis of concern. Discussed option of trial of low-dose pioglitazo ne. Risk for bladder cancer seen in high doses so only go to 30mg. No hx of heart failure in patient so risk of that is low. Could cause some weight gain in patient on insulin and will monitor closely for that. Also possible decrease in bone density but expect less of that in healthy man. [id number] Osman Amaya MD Endocrino logy, [address] [address] 01/06/2017 15:42:48 01/06/2017 17:16:15 Type 2 diabetes mellitus without complication [id number] E11.9 A1c improving to 6.5% with pioglitazo ne added to Lantus/Hum alog and metformin. Taking Lantus at night but AM values still high. AM sugars still high and of some concern. Also having persistent increase in LFTs (ALT= 60 - was 41). Humalog scale from website:se nsitivity is 151:6 is INS:CHO6.7 is correction . Stay on same scale (table from website) for Humalog. If AM sugars improve, and still high later in day, may increase scale (he's using a bit more than scale suggests anyway. Given persistent increase in LFTs with high TG and AM sugars that are above target, would like to try med to assist these areas and improve insulin sensitivit y. Can't tolerate incretin class.DPP- IV targets post-prand ial more.Could consider SGLT2 drugs but excess urination (which he already has) and risk for ketosis of concern. Trial of pioglitazo ne hasn't worked as well as hoped for TG.He's hoping to have better opportunit ies for exercise and lifestyle improvemen t (possible new job). For now, try increasing lantus from 40 up to 44 units. OK to go up to 48 if AM remain over 150. Mixed hyperlipidemia 267 166766 E78.2 On atorva 10 with LDL OK but high TG (over 300). If strategies to improve AM glucose and fatty liver don't improve TG, may want to consider change to rosuvastat in (20). Pt. to check coverage. Liver func tion tests outside reference range 948045123 R94.5 MIld.Likel y fatty liver.Mayra tor labs to see if any change. [id number] Osman Amaya MD Endocrino logy, [address] [address] 05/25/2017 14:54:28 05/25/2017 16:08:50 Type 2 diabetes mellitus without complication 959831691 E11.9 A1c at goal (under 7%). Value was 6.7% and was 6.5%) - had slight improvemen t on pioglitazo ne added to Lantus/Hum alog and metformin. Taking Lantus (50) at night with AM values variable 120-180. Humalog scale from website:Se nsitivity is 151:6 is INS:CHO6.7 is correction .Stay on same scale (table from website) for Humalog. Would like to see if can use alternativ e to pioglitazo ne (especiall y since impact on TG haven't been that great (high was 340 and now at 235- still not under 150). Hasn't tolerated incretin class.DPP- IV targets post-prand ial more.Could consider SGLT2 drugs but excess urination (which he already has) and risk for ketosis of concern. One option might be trial of combinatio n lantus with incretin (soliqua has lixi with glargine). Try sample of Soliqua. Will use 40 units to start but increase to 45 if AM sugars high. If goes up to 50, call office. If can't tolerate Soliqua, will try DPP-IV instead of Jody. Mixed hyperlipidemia 267 954446 E78.2 On atorva 10 with LDL OK but high TG (235 in 05/16- were over 300). If strategies to improve AM glucose and fatty liver don't improve TG, may want to consider change to rosuvastat in (20). Pt. to check coverage. Liver func tion tests outside reference range 933066956 R94.5 MIld. ALT onlyLikely fatty liver.Mayra tor labs to see if any change. [id number] Osman Amaya MD Endocrino logy, [address] [address] 09/15/2017 17:08:24 09/20/2017 07:22:49 Type 2 diabetes mellitus without complication 249508645 E11.9 A1c at goal with a1c under 7% (6.5% in 08/13) off several meds. Now on Lantus only. In past, had slight improvemen t on pioglitazo ne added to Lantus/Hum alog and metformin. Taking Lantus (50) at HS Hasn't tolerated incretin class.Coul d consider SGLT2 drugs but excess urination (which he already has) and risk for ketosis of concern. Also reports GI side effects on metformin. Given benefits he has had with weight loss, suggest he ty phentermin e to maximize weight loss effect.Dec rease Lantus to 40 units when start phentermin e. Mixed hyperlipidemia 267 682039 E78.2 On atorva 10 with LDL OK but TG better following weight loss (190 down from 235 in 05/16- were over 300). Liver func tion tests outside reference range 668971617 R94.5 MIld. Better with weight lossLikely fatty liver.Mayra tor labs to see if any change. [id number] Osman Amaya MD Endocrino logy, [address] [address] 05/25/2018 15:47:32 05/25/2018 17:51:00 Type 2 diabetes mellitus without complication 318384826 E11.9 A1c at goal with a1c under 7% (6.5% in 08/13) off several meds. Now on Lantus only. Taking Lantus (50) at HS. Also has been using Humalog. Mealtime calculator based on sensitivit y of 15; I:C= 6; and exercise factor of 1.00 but feels it's not enough and has been adding a couple of units. Eg., if at 160-180 and planning 40g CHO. it says 11.3, but he's taking 18 but still not getting to 100. Discussed options of CGM. Will look into dexcom as option. Didn't tolerate incretin class. Could consider SGLT2 drugs but excess urination (which he already has) and risk for ketosis of concern. However, if can get his sugars down, polyuria might gradually decline. Has been unclear if he had GI side effects on metformin vs. januvia. He stopped metformin while at [employer] weight program (high protein). Suggest re-start metformin and aim for 1000 bid.Then will look to add jardiance. At same time, will look into CGM. Had trial of phentermin e which gave him energy but didn't see big change in weight. Mixed hyperlipidemia 267 442546 E78.2 On atorva 10 with LDL OK but TG up afte rweight regain. Had better TG after weight loss (190 down from 235 in 05/16- were over 300). Increase atorva to 20 Liver func tion tests outside reference range 943531976 R94.5 Mild. Better with weight lossLikely fatty liver. He was concerned might be metformin but more likely TG got better with weight loss and will be up again if TG remain high (over 400). Monitor labs to see if any change. [id number] Osman Amaya MD Endocrino logy, [address] [address] 01/06/2019 13:52:53 01/06/2019 15:04:55 Type 2 diabetes mellitus without complication [id number] E11.9 A1c at goal with a1c of 7% (12/15); was under 7% (6.5% in 08/13) off several meds. Taking Lantus (55) at HS. Also has been using Humalog.Oglesby s some highs o/n even though says not eating after dinner. Lantus may be wearing off and has little insulin coverage in evening. Suggest try change to Toujeo for longer coverage. Same dose of 55 units. For short acting, has mealtime calculator based on sensitivit y of 15; I:C= 6; and exercise factor of 1.00 Like before, says he adds a couple of units. if chart says 10 uses 18if chart says 20, uses 28. Eg., if at 160-180 and planning 40g CHO. it says 11.3, but he's taking 18 but still not getting to 100. Takes Humalog after meal 60-70%. Using Dexcom. Interested in pump.Didn' t tolerate incretin class. Suggest increase SGLT2 - Jardiance from 10mg to 25mg. Had trial of phentermin e which gave him energy but didn't see big change in weight. Send new sliding scale chart using:Targ et= 120Sensiti vity= 12 (was 15)I:C= 5 (was 6.0)Exerci se= 1.0 (no change) Liver enzy mes outside reference range 574108649 R94.5 AST/ALT= 19/39 in .Much better generally since 2018.TG better at 277 (vw. 430) but still high. May want to consider u/s for fatty liver, especially if a1c goes back up. Benign ess ential hypertension 3959049 I10 At goal in office todayOn losartan and metoprolol . Was on lisinopril and had cough. May get further benefit from incrase in Jardiance. Mixed hyperlipidemia 267 399916 E78.2 On atorva 20 with12/15: TG 277 ( was 430), HDL 36 LDL 82LDL OK at 22Suggest increase to 40 mg Had better TG after weight loss (190 down from 235 in 05/16- were over 300). Increase atorva to 40 Active or passive immunization [id number] 2018 [id number] Maricarmen Dunn, RN, BSN, [facility] DM Education , [address] [address] 04/12/2019 15:21:36 04/14/2019 10:40:22 Uncontrolled type 2 diabetes mellitus [id number] E11.65 Met with [facility] for diabetes education, kindly referred by Dr. Amaya.-L ast seen by Dr. Amaya in December.-L ast A1C was 7.0% in January.- Currently being treated with Toujeo 56 units at night and Humalog before meals: sensitivit y is 1:15 mg/dl with a target of 100 mg/dl and 1 unit for 6 grams of carbs.-He reports he was waiting to hear from Dr. Amaya's office for new scale. It states his new ratios are: Target= 120; Sensitivit y= 12 (was 15); I:C= 5 (was 6.0) and Exercise= 1.0 (no change).-Kylie iqbal admits he continues to give more insulin, compared to both of these charts. Printed both charts for him and reviewed them. Did the math based on total daily dose of insulin and his carb ratio is closer to 1:3 or 4 grams with a Sensitivit y of 1:10 mg/dl. We printed out another cheat sheet for him to review and he felt this was much closer what he is currently injecting for Humalog before meals.-Sandra spears is interested in pump therapy and he comes today to learn more about pumps.-Cur rently wearing the Dexcom G6.-Downlo ad of his sensor reveals his blood sugar average is 145 mg/dl. He has 25% above target range; 75% are within target range and 0% below target range.-The trend that was noted was elevated blood sugars from 12 am until 6 am. He is below 150 mg/dl between the hours of 6 am until 9 pm and then he is elevated above 180 mg/dl overnight from 9 pm until 6 am.-He was given multiple cheat sheets to figure out which carb ratio is working for him. He has been doubling his current cheat sheet which was 1:6 grams and 1:15 mg/dl greater than 100 mg/dl. He found the 1:3 grams carb ratio and 1:10 mg/dl sensitivit y was much closer to what he is currently using.-He plans to contact his insurance company after reviewing pumps to find out which one is covered by his insurance. Reviewed the following: The different pump companies on the market.How to adjust his carb ratio and correction factor based on algorithms of 1800 and 450 divided by total daily dose.Jacob wed his sensor download in detail and blood sugar patterns. [id number] Maricarmen Dunn RN, BSN, [facility] DM Education , [address] [address] 07/12/2019 08:14:26 07/12/2019 16:03:08 Uncontrolled type 2 diabetes mellitus [id number] E11.65 Met with [facility] for a virtual diabetes education appt, kindly referred by Dr. Amaya.-L ast A1C was 6.5% in April.- Currently being treated with Tandem T-slimx2 insulin pump with Control IQ technology .-We were able to download both his sensor and his pump today over the phone. He has the ability to share a code with his sensor and download his pump onto [employer].- Download of his sensor reveals his monthly average is 128 mg/dl. He has 9% above target range; 90% are within target range and 0% below target range.-His pump download reveals his blood sugar average is 154 mg/dl and he has 70% within target range; 27% above target range and 4% below target range.-He is using Control IQ 81% of the time.-He is infusing 75.52 units per day and 50% is basal insulin; 9% is for correction and 42% is food bolus.-He is changing his infusion sites every 2.8 days.-He continues to do very well and the pump is doing a great job managing his diabetes and keeping him below 180 mg/dl most of the time. He was encouraged to keep an eye on his 10 pm-1 am time frame since that is when he has low blood sugars. In the last month, he had 3 total lows in that time frame.-He admits he may give himself a 5 unit bolus (manual) when he is feeling anxious or impatient that his blood sugar is not coming down, therefore, he believes this may be contributi ng to his lower blood sugars at night.-He was also encouraged to use sleep mode or exercise mode since the pump will decrease insulin during those times. Reviewed the following: Reviewed his sensor and pump download in detail and blood sugar patterns. Patient agreed to this visit via phone due to the COVID -19 pandemic. Patient understand s this is a scheduled visit and the usual procedures with regard to billing and jessicai ality apply. Patient was notified that the provider location is [facility] Patient location: home During the visit the patient? s medical history and medical record were reviewed. The patient was notified to call our office for worsening or urgent symptoms. [id number] Osman Amaya MD Endocrino logy, [address] [address] 08/16/2019 08:08:17 08/17/2019 10:51:09 Type 2 diabetes mellitus without complication [id number] E11.9 A1c indicates excellent control with value of 6.5 (05/18); was 7% (12/15); was under 7% (6.5% in 08/13) off several meds. On pump since 05/187-08/15/ 0; avg= 136 +/- 32; was 145 +/- 32; In time: 84% High= 16% Lows 0%. o/n: 6, 3pm: 1, post-L; 1 PUMP: basal/bolu s= 52/47.basa l= 2.2 all dayCorrect ion= 1:15CHO ratio 1:4. Has some highs o/n even though says not eating after dinner. Using Dexcom. Didn't tolerate incretin class. Might consider changing basal to;MN-4AM= 2.34AM-MN= 2.2 If he has highs in evening, would then change basal to 2.3 from 9-MN. Mixed hyperlipidemia 267 637626 E78.2 On atorva with05/18: 177/220 (from 277) /38 (was 36) /: TG= 277 ( was 430), HDL= 36 LDL= 82 Increased atorva from 20 to 40 in 2018. Had better TG after weight loss (190 down from 235 in 05/16- were over 300). Liver enzy mes outside reference range 836005431 R94.5 AST/ALT= 16/33 (05/18); was 19/39 in 12/15.Much better generally since 2018.TG better at 277 (vw. 430) but still high. May want to consider u/s for fatty liver, especially if a1c goes back up. Benign ess ential hypertension 3673053 I10 On losartan and metoprolol . Was on lisinopril and had cough. [id number] Maricarmen Dunn, RN, BSN, [facility] DM Education , [address] [address] 10/11/2019 08:09:39 10/17/2019 14:42:15 Uncontrolled type 2 diabetes mellitus [id number] E11.65 -Virtual Visit over [place] [facility] due the COVID-19 pandemic.- Last A1C was 6.5% in April. Due in October for A1C updated.-C urrently being treated with Tandem T-slimx2 insulin pump with Control VirtualLogix technology .-He uploaded to [employer] and was able to review the data online with him. -Download of his pump reveals average blood sugar of 137 mg/dl for the last month.-47% within target range; 51% above target range and 1% below target range. -He is using Control VirtualLogix 51% of the time.-He is infusing 56.62 units per day and 49% is basal insulin; 10% is for correction and 41% is food bolus.-He is changing his infusion sites every 3.9 days. -Made changes to basal rate since his blood sugars are rising and pump is giving automatic correction boluses around 6 pm. Then he will bolus for food after the correction boluses. -Running high between the hours of 3 am-10 am and again 6 pm-12 am. 12 am- 2.3 u/hr (increased ) 6 am- 2.2 (stayed the same, added) 3 pm- 2.3 u/hr (increased and added). -He was on vacation, therefore he was not on the pump during this time. [place] to the beach and went back to giving injections during vacation. -No other changes were made at this time. Reviewed the following: Reviewed his sensor and pump download in detail and blood sugar patterns. Patient agreed to this visit via secure telehealth platform due to the COVID -19 pandemic. Patient understand s this is a scheduled visit and the usual procedures with regard to billing and confidenti ality apply. Patient was notified that the provider location is not at [facility] Patient location: home During the visit the patient? s medical history and medical record were reviewed. The patient was notified to call our office for worsening or urgent symptoms. Insulin pump present [id number] Z96.41 [id number] Maricarmen Dunn RN, BSN, [facility] DM Education , [address] [address] 01/11/2020 08:01:07 01/11/2020 14:13:06 Uncontrolled type 2 diabetes mellitus [id number] E11.65 -Virtual Visit over [place] [facility] due the COVID-19 pandemic.- Kindly referred by Dr. Amaya for diabetes education and pump therapy.-L ast A1C was 6.5% in November. -Currently being treated with Tandem T-slimx2 insulin pump with Control IQ technology , along with Dexcom G6 sensor.-He uploaded to [employer] and we were able to review the data online with him. -Download of his pump reveals average blood sugar of 123 mg/dl for the last month.-84% within target range; 13% above target range and 3% below target range. -He is using Control IQ 66% of the time.-He is infusing 77.32 units per day and 42% is basal insulin; 10% is for correction and 48% is food bolus.-He is changing his infusion sites every 3.3 days. -Overall, he is doing very well on Control IQ and there was not a significan t pattern noted.-Hav ing some hypoglycem ia, however, there was not a specific time frame they were occuring. -Reports he was on a super low carb diet for 2 months (22 grams per day). He did lose weight with the diet. September-Nov. He lost about 20 lbs. He has gained about 5 lbs back.-He finds it too difficult to continue this diet and has since stopped it. -He continues to walk 3 miles every other day. Mon, Wed, Fri, Sat or Sun -He is rotating his sites around, more now so, since he finds he is not always absorbing well in his abdomen. -He also mentioned that his sensor seems to disconnect more often from the pump since it is communicat ing through bluetooth technology . He was encouraged to keep the pump as close to the sensor as possible. -No other changes were made at this time. Reviewed the following: -Reviewed his sensor and pump download in detail and blood sugar patterns.- How insulin does not always absorb well when there is scar tissue. Insulin pump present [id number] Z96.41 [id number] Osman Amaya MD Endocrino logy, [address] [address] 04/22/2020 12:59:48 05/24/2020 06:46:22 Type 2 diabetes mellitus without complication [id number] E11.9 A1c indicates good control with value of 7.0 (04/18); was 6.5 (05/18); was 7% (12/15); was under 7% (6.5% in 08/13) off several meds. On pump since 05/18. 04/18: Worked with patient to change CHO ratio. currently at 1:3 (indicatin g insulin resistance ) - Suggest change to 2.8. Has f/u scheduled with Maricarmen. See if needs further adjustment s. May want to keep ratio at 3.0 from 4AM until 11AM if having lows post-bkfst but leave at 2.8 fro 11AM to 9PM to affect lunch and dinner. Using Dexcom. Didn't tolerate incretin class. Says he had s/e on jardiance too. Liver enzy mes outside reference range [id number] R94.5 04/18: up again with a1c slightly increased (7.0 was 6.5) Hope to see improvemen t with a1c better. Didn't tolerate incretins. AST/ALT= 60/33 (04/18); was 16/33 (05/18); was 19/39 in 12/15. Much had been better since 2017. TG worse again (317 in 04/18); had been 198; was 277; was 430. HDL also low. Mixed hyperlipidemia 267 615880 E78.2 On atorva with 04/18: 171/317/ / TG/HDL were: 198/35 05/18: 177/220/38 /95 12/15: TG= 277 (was 430), HDL= 36 LDL= 82 Increased atorva from 20 to 40 in 2018. Had better TG after weight loss (190 down from 235 in 05/16- were over 300). If TG remain high, will want to consider either increase atorva to 80 or change to rosuva. But would prefer to have him work with exercise. Benign ess ential hypertension [id number] I10 On losartan and metoprolol . Was on lisinopril and had cough. [id number] Maricarmen Dunn, RN, BSN, [facility] DM Education , [address] [address] 05/29/2020 15:33:19 05/31/2020 09:02:31 Uncontrolled type 2 diabetes mellitus [id number] E11.65 -Virtual Visit over [place] [facility] due the COVID-19 pandemic. -Kindly referred by Dr. Amaya for diabetes education and pump therapy. -Last A1C was 7.0% in March, it is up from 6.5% in November. -Currently being treated with Tandem T-slimx2 insulin pump with Control IQ technology , along with Dexcom G6 sensor. -He uploaded to [employer] and we were able to review the data online with him. -Download of his pump reveals average blood sugar of 161 mg/dl for the last month. -69% within target range; 29% above target range and 1% below target range. -He is using Control IQ 59% of the time. -He is infusing 99.21 units per day and 40% is basal insulin; 9% is for correction ; 37% is food bolus and 13% is auto correction s. -He is changing his infusion sites every 2 days. -59% he is using Control IQ technology . -Overall, he continues to do very well with Control IQ and there was not a significan t pattern, however, his glucose is slightly higher compared to his last appt in Dec. -No pattern of hypoglycem ia. It looks like he had 9 low blood sugars in the last month. -He had knee surgery on May 17 at [facility], after tearing an ACL on Mar 29 while skiing with his son. -The blue tooth is disconnect ing from the sensor, mainly due to the fact that they are not within a foot of each other. -He has no trouble with connecting to his cell phone. -Does not have a structure when it comes to his meals and timing of meals. He may skip meals and does not snack during the day, however he is snacking at night in front of the TV. -Fully vaccinated with COVID vaccine. -Will send a message to Nury Guevara RD with T[employer] about sensor data that shows up on the pump, but not giving correction s even when glucose is above 200 mg/dl, and pump has Control IQ turned on but does disconnect occasional ly from the sensor. -No other changes were made at this time since there was no pattern noted. Overall, his blood sugars appear to be in target range most of the time. He is having less hypgolcyem ia compared to his last appt and his A1C has gone up, however, he remains in excellent control. Reviewed the following: -Reviewed his sensor and pump download in detail and blood sugar patterns. Insulin pump present 450 [id number] Z96.41 Tandem T-slim x2 pump with Dexcom G6 and Control IQ technology [id number] Osman Amaya MD Endocrino logy, [address] [address] 11/19/2020 13:48:03 11/19/2020 19:42:02 Benign essential hypertension [id number] I10 On losartan and metoprolol . Was on lisinopril and had cough. Type 2 gilbert betes mellitus without complication 872067070 E11.9 A1c indicates excellent control with value of 6.9 (10/16); was 7.0 (04/18); was 6.5 (05/18); was 7% (12/15); was under 7% (6.5% in 08/13) off several meds. On pump (Tslim with dexcom) since 05/18. Has f/u scheduled with Maricarmen. See if needs further adjustment s. Didn't tolerate incretin class but willing to try semaglutid e to help with fatty liver.. Says he had s/e on jardiance too.Opport unity to improve is to address snacking after dinner. Eliminatin g snacking would help BG and weight. If can't do that, may have to adjust I:C ratio after dinner. Liver enzy mes outside reference range 868965769 R94.5 11/16: up again with TG now over 400 AST/ALT= 31/67 (10/16); was 33/60 (04/18); was 16/33 (05/18); was 19/39 in 12/15. Was better in 2018. TG worse again (448 in 11/16; was 317 in 04/18); had been 198; was 277; was 430. HDL also low. Try and get TG better with rosuva. Then try to add semaglutid e and see if he can tolerate.I f not, will want to consider either jody or more focused options re: weight loss.Discu ssed that 10% (25#) could make a big difference . Mixed hyperlipidemia 267 930153 E78.2 TG increasing steadily over last 1-2 years. 11/16: 190-448-30 -: 171/317/31 /: 166/198 /35/9105/18 : 177/220 (from 277) /38 (was 36) /: TG= 277 (was 430), HDL= 36 LDL= 82 Had better TG after weight loss (190 down from 235 in 05/16- were over 300). 11/16: Change atorva to rosuva (40) to help bring down high TG Once TG down, can plan to start incretin Non-alcoho lic fatty liver [id number] K76.0 Based on ALT>AST and high TG and report of previous abnormalit y.Reviewed etiology and potential complicati ons over time if this condition is not corrected. Insulin pump present 450 [id number] Z96.41 Increases complexity [id number] Osman Amaya MD Endocrino logy, [address] [address] 01/30/2021 08:59:22 01/30/2021 18:43:46 Type 2 diabetes mellitus without complication 692248479 E11.9 02/16: CGM sent in- shows time in range 49%. Most likely time to intervene is evening. A1c indicates excellent control with value of 6.9 (10/16); was 7.0 (04/18); was 6.5 (05/18); was 7% (12/15); was under 7% (6.5% in 08/13) off several meds. On pump (Tslim with dexcom) since 05/18. Has f/u scheduled with Maricarmen. See if needs further adjustment s. Didn't tolerate incretin class but willing to try semaglutid e to help with fatty liver.. Says he had s/e on jardiance too.Opport unity to improve is to address snacking after dinner. Eliminatin g snacking would help BG and weight. If can't do that, may have to adjust I:C ratio after dinner. Insulin pump present 450 [id number] Z96.41 Increases complexity [id number] Osman Amaya MD Endocrino logy, [address] [address] 04/29/2021 13:48:56 05/01/2021 12:42:24 Type 2 diabetes mellitus without complication 779362361 E11.9 On pump (Tslim with dexcom) since 05/18. a1c= 8.0 (01/16); was 6.9 (10/16); was 7.0 (04/18); was 6.5 (05/18); was 7% (12/15); was under 7% (6.5% in 08/13) off several meds. Pt has recently (04/19) gone back on stricter diet.CGM percent in-goal has increased% in-time= 88% (05/20); was 62 (04/19); was 49% (02/16) Expect next a1c to be improved. Hasn't tolerated incretin class- was hoping to use to promote weight loss and help with fatty liver.. Says he had s/e on jardiance too.CGM notes about 1/3 of nights have increase in BG around 9PM. Pt. denies any snacking.S uggest either become mroe aware of hidden snacks, adjust behavior to bolus for snacks or possibly increase basal around 8-10PM. Hope that he will be able to get gastric sleeve by summer to promote weight loss. Insulin pump present 450 [id number] Z96.41 Increases complexity Mixed hyperlipidemia 267 558661 E78.2 TG increasing steadily over last 1-2 years.12/28 1: 145-349-32 -113 (started vascepa via CARDS)11/16 : 190-448-30 -: 171/317/31 /77/: 166/198 /35/ : 177/220 (from 277) /38 (was 36) /: TG= 277 (was 430), HDL= 36 LDL= 82 Had better TG after weight loss (190 down from 235 in 05/16- were over 300). 11/16: Changed atorva to rosuva (40) to help bring down high TG CARDS started vascepa- think this is a very good choice.Loo k forward to seeing impact. Non-alcoho lic fatty liver [id number] K76.0 Based on ALT>AST (66>29 in 01/16); and high TG (over 400 in 11/16) and report of previous abnormalit y.Reviewed etiology and potential complicati ons over time if this condition is not corrected. Liver enzy mes outside reference range 701861773 R94.5 11/16: up again with TG now over 400 AST/ALT= 29/66 (01/16); was 31/67 (10/16); was 33/60 (04/18); was 16/33 (05/18); was 19/39 in 12/15. Was better in 2017. TG worse again (349 in 01/16; was 448 in 11/16; was 317 in 04/18); had been 198; was 277; was 430. HDL also low. Try and get TG better with rosuva. CARDS started Vascepa which should help.For fatty liver, may tobias to consider either jody (but would likely cause weight gain). Weight loss via gastric sleeve would likely benefit. [id number] Osman Amaya MD Endocrino logy, [address] [address] 10/31/2021 10:24:39 12/02/2021 08:41:08 Type 2 diabetes mellitus without complication [id number] E11.9 On pump (Tslim with dexcom) since 05/18. a1c= 7.0 (11/17 and 06/17) was 8.0 (01/16); was 6.9 (10/16); was 7.0 (04/18); was 6.5 (05/18); was 7% (12/15); was under 7% (6.5% in 08/13) off several meds. s/p gastric sleeve procedure (11/17)Hope to have him come off insulin but will have to continue to monitor carefully. Didn't tolerated incretin class- was hoping to use to promote weight loss and help with fatty liver.. Says he had s/e on jardiance too. Insulin pump present 450 [id number] Z96.41 Increases complexity There is a current and ongoing significan t concern for the this patient's risk for severe hypoglycem ia causing serious health consequenc es. Mixed hyperlipidemia 267 636595 E78.2 TG high but has improved during till not at goal. 11/17: 110/235/30 /33 (11/17)-05/28 2: 123-284-29 -371: 145-349-32 -113 (started vascepa via CARDS)11/16 : 190-448-30 -: 171/317/31 /7712/16: 166/198 /35/9105/18 : 177/220 (from 277) /38 (was 36) /: TG= 277 (was 430), HDL= 36 LDL= 82 Had better TG after weight loss (190 down from 235 in 05/16- were over 300). 11/16: Changed atorva to rosuva (40) to help bring down high TGCARDS started vascepa- think this is a very good choice.Loo k forward to seeing impact. Non-alcoho lic fatty liver 996834509 K76.0 Originally based on ALT>AST (66>29 in 01/16); and high TG (over 400 in 11/16) and report of previous abnormalit y. U/S of liver confirmed dx in 02/16.Revi ewed etiology and potential complicati ons over time if this condition is not corrected. Hope to see improvemen t s/p gastric sleeve. [id number] Maricarmen Dunn, RN, BSN, [facility] DM Education , [facility] [address] [place] [address] 12/23/2021 14:36:15 01/12/2022 15:46:44 Uncontrolled type 2 diabetes mellitus [id number] E11.65 -Virtual Visit over [facility] due the COVID-19 pandemic. -Kindly referred by Dr. Amaya for diabetes education. -Last A1C was 7.0% in October, it had been 7.0% in May.-At previous visit in May of 2020, he was still on insulin pump, Tandem T-slim x2 pump with control IQ.-Now pt is off of pump due to Gastric Bypass surgery on October 21. Has lost 54 lbs in 2 months since the surgery. Current weight is 223 lbs, he is weighing himself every day. Reports he is down 5 pant sizes.-Onl y medication he is taking is: Metformin ER 500 mg, 2 tabs twice a day. -Had hurt his knee and had ACL surgery and was laid up with that (knee injury was Mar)-Admi ts that this may have contribute d to his weight gain, along with COVID pandemic.- Being off the insulin, post surgery is helping him lose weight.-Ex ercising often- every day, 3 mile walks, he plans to jog when weight down to 200 lbs. It is a goal to do a 5K. -Having a few ounces with his meals and 3 meals and 2 snacks (1 morning and 1 afternoon snack); has a fit crunch protein bars, He has to be eating 120 grams of protein per day. -An issue with his Dexcom sensor, he notices he will run high for 3-4 days and he will keep calibratin g it. His blood finger prick is about 20 mg/dl lower. Had one lower reading on Dec.02 and he does not think it was accurate. Sensor Download reveals:-A verage glucose is 150 mg/dl for 30 days.-86% are in target range; 12% are above 180 mg/dl; 1% are above 250 mg/dl; <1% are below 70 mg/dl; and <1% are below 50 mg/dl.-The main trend noted are glucose very close to target range most of the day, however, there are slight increases with his blood sugars and they are after dinner or after 9 pm, however, they do not stay elevated for very long, maybe 2 hours or less.-Pt. reports he is having dinner and a shake before bed because he is trying to fit in his 120 grams of protein per day. -PLAN: We discussed changing the time of the shake, however, it may still have the same affect if it is at a different time, however, if close to his walk time, there may be some improvemen t. No changes with his diet since he was told to not watch his calorie intake and focus on consuming enough protein right now for his bariatric surgery diet. He was encouraged to continue to use the sensor since it provides us with valuable data with his blood sugars. He is doing very well and no changes were made at this time. Keep an eye on his blood sugars after 6 pm and after 9 pm and he continues to run higher or stay high for several hours, than we can consider re-startin g short acting insulin with those meals (as needed). Pt. will FU with Diabetes Education on a PRN basis and FU with Dr. Amaya in April. Pt. asked if another medication might be helpful and reviewed one medication that might be helpful, however, contraindi cated with gastric bypass surgery (incretins ) therefore, told him that his current medication is fine and we should not add another one at this time. Reviewed the following: -Blood sugar download-G LP-1 inhibitors or incretins that might help blood sugars, however, contraindi cated with gastric bypass surgery. [id number] Osman Amaya MD Endocrino logy, [address] [address] 05/04/2022 13:53:28 05/22/2022 14:08:48 Type 2 diabetes mellitus without complication [id number] E11.9 Doing well on just metformin. s/p gastric sleeve procedure (11/17) Off pump (was Tslim with dexcom) starting 05/18 but stopped after bariatric procedure. a1c= 7.1 (03/19); was 7.0 (11/17 and 06/17) was 8.0 (01/16); was 6.9 (10/16); was 7.0 (04/18); was 6.5 (05/18); was 7% (9); was under 7% (6.5% in 5) off several meds. Didn't tolerated incretin class- was hoping to use to promote weight loss and help with fatty liver.. Says he had s/e on jardiance too. Non-alcoho lic fatty liver [id number] K76.0 Originally based on ALT>AST (66>29 in 01/16); and high TG (over 400 in 11/16) and report of previous abnormalit y. U/S of liver confirmed dx in 02/16.Revi ewed etiology and potential complicati ons over time if this condition is not corrected. Hope to see improvemen t s/p gastric sleeve when weight and a1c both stable. Mixed hyperlipidemia 267 508719 E78.2 03/19: 148-181-44 -68 (s/p gastric sleeve in 11/17); off rosuva.10/28 2: 110/235/30 /33 (11/17)-05/28 2: 123-284-29 -371: 145-349-32 -113 (started vascepa via CARDS)11/16 : 190-448-30 -7004/18: 171/317/31 /779: 166/198 /35/9105/18 : 177/220 (from 277) /38 (was 36) /: TG= 277 (was 430), HDL= 36 LDL= 82 Had better TG after weight loss (190 down from 235 in 05/16- were over 300). 11/16: Changed atorva to rosuva (40) to help bring down high TG, Had Vascepa added by CARDS. 05/21: not on meds. Will monitor but likely will want to add back low-dose rosuva. [id number] Osman Amaya MD Endocrino logy, [address] [address] 11/09/2022 15:39:08 01/05/2023 08:06:27 Type 2 diabetes mellitus without complication [id number] E11.9 Doing well on just metformin. s/p gastric sleeve procedure (11/17) Off pump (was Tslim with dexcom) starting 05/18 but stopped after bariatric procedure. a1c= 6.7 (11/18); was 7.1 (03/19); was 7.0 (11/17 and 06/17) was 8.0 (01/16); was 6.9 (10/16); was 7.0 (04/18); was 6.5 (05/18); was 7% (12/15); was under 7% (6.5% in 08/13) off several meds. Didn't tolerated incretin class- was hoping to use to promote weight loss and help with fatty liver.. Says he had s/e on jardiance too. Non-alcoho lic fatty liver 411270767 K76.0 Originally based on ALT>AST (66>29 in 01/16); and high TG (over 400 in 11/16) and report of previous abnormalit y. U/S of liver confirmed dx in 02/16.Revi ewed etiology and potential complicati ons over time if this condition is not corrected. Hope to see improvemen t s/p gastric sleeve when weight and a1c both stable. 11/18: CT report notes focal area. May have some residual but seems likely much improved. Mixed hyperlipidemia 267 505016 E78.2 11/18: 215/195/41 /433[address]/22: 148-181-44 -68 (s/p gastric sleeve in 11/17); off rosuva.10/28 2: 110/235/30 /33 (11/17)-05/28 2: 123-284-29 -371: 145-349-32 -113 (started vascepa via CARDS)11/16 : 190-448-30 -: 171/317/31 /7712/16: 166/198 /35/9105/18 : 177/220 (from 277) /38 (was 36) /: TG= 277 (was 430), HDL= 36 LDL= 82 Had better TG after weight loss (190 down from 235 in 05/16- were over 300). 11/16: Changed atorva to rosuva (40) to help bring down high TG, Had Vascepa added by CARDS. 05/21: not on meds. Will monitor but likely will want to add back low-dose rosuva.10/28 3: re-start rosuva (low dose to start) Health Concerns Section Related Observation LastModified by Organization Detai ls LastModified Time None Recorded Concern Status LastModified by Organization Details LastModified Time None Recorded Advance Directives Directive None Recorded Payers Encounter Date Sequence Insurance Name Policy Number Policy Nino Covered Member ID Nino Member ID Guarantor Name 04/29/2021 1 [place] [id number] Susan J Troutdale [id number] 23 Manjit Troutdale 10/31/2021 1 [place] [id number] Susan J Troutdale [id number] 23 Manjit Troutdale 12/23/2021 1 [place] [id number] Susan J Troutdale [id number] 23 Manjit Troutdale 05/04/2022 1 [place] [id number] Susan J Troutdale [id number] 23 Manjit Troutdale 11/09/2022 1 [place] [id number] Susan J Troutdale [id number] 23 Manjit Troutdale Notes Date Note Type Note Provider Name and Address Organization Details Recorded Time 2 text/html DiabetesReported bypatient.Labs:last Hemoglobin A1C: at goal (8.0 (01/16); was 6.9 (10/16); was7.0 (04/18); was 12/16); was 6.5 (05/18);); microalbumin/creatinine ratio: 2020 normal; serum creatinine: 2020 normal; LDL (113 (01/16)); Triglycerides decreasing (349 (01/16); was 317 (04/18); was 198; was 220 (05/18); was 277 (12/15); was 430 (05/17);); HDL (32 (01/16); was 30 (10/16); was 31 (04/18); was 35; was 38 (05/18); was 36 (12/15); was 34 (05/17); was 30 (08/13); was 31.); LFTS; see below. Diabetes Medications:metformin (1000 bid;); glipizide (OFF); pioglitazone (OFF); glargine (OFF (ON PUMP): was LANTUS; 55 HS ;); aspart (Novolog in pump per insurance (2020); OFF OZEMPIC (05/20) Insulin pump settings:Insulin pump modeltandem; insulin pump maketslimi Renal/HTN Medications:losartan; HCTZ; metoprolol Lipid Medications:atorvastatin (40 (was 20)); Vascepa started by [facility]DS (2021). Review blood sugar:See below Associated Symptoms:no polyuria (every hour lately.); no nocturia (2-3x;); no burning or discomfort with urination; no blurred vision; Still on CPAP. Cardiac / Eye / Podiatric / Renal / Vascular Symptomsno coronary artery disease (see below- had cardiology w/u.); no retinopathy ([place] ([place] 2020)); no numbness of feet; no kidney disease; no peripheral vascular disease; no neuropathy; Has f/u with [facility]. Hx of occ. CP with stress at work- life safety and customers. PCP did EKG- told it was OK. Had CP in past- did ETT (leads fell off and had to do nuclear ETT but told that was OK) Maybe heartburn. Knows he has hiatal hernia. Hypoglycemia Symptomsfrequency of hypoglycemic episodesinfrequently (occ from stacking.); Severity of hypoglycemic episodes mild; Excessive sweating when hypoglycemic (Weak in knees. confused but knows what's going on); One episode after treadmil. Lightheaded/dizzy. almost like drunk. sweating/shaking. In past (2019), has hiked [place] to [place] of [place]. Alarm - alarm showed (60s). not much sx (was sweaty while hiking- didn't have sugar with him). still has some sensor lows not confirmed by POC.Notes:MED HX:Stopped glipizide at time tried Trulicity to try and protect insulin secretory abilities.When had s/e of Trulicity, went on to Lantus at HS.Tried Victoza but had GI s/e.Previously used chart with sensitivity of 15 and ins:CHO= 1:6 and exercise factor of 1.0Off chromium and cinnamon had tried but stopped. LIPIDS:01/16: 145-349(were 448)-32-113 LFTS:ALT= 66 (01/16); was 67 (10/16); was 60 (04/18); was 52 was 41; was 16 (2019); was 19 (01/14); was 32 (05/17); was 42 (08/13); was 69 (05/16); was 60 (was 46 -was 30 but had been 60). Had been closer to 90 in 12/12. AST = 29 (01/16); was 31 (10/16); was 33 (04/18); was 25; was 16; was 33 (05/18); was 39 (01/14); was 19 (05/17); was 22 (08/13); was 34 (05/16); was 27 -was 79 (09/12)- was 60. 04/18: Pump [id number] - 4 am= 2.54am to 9pm 2.59pmto 12am 2.5 [id number] 1 to 34am -9pm ..1 to 2.8(changed today)9pm to 12am .1 to 3 insulin sensitivity1 to 10 At all times PREVIOUS LABS:a1c= was 7.0 (12/15); was 7.5 (05/17); was 6.5 (08/13); was 6.7 (05/16); T (04/18); was 198; was 220 (05/18); was 277 (12/15); was 430 (05/17); was 190 (08/13); was 235(05/16); was 334 (01/12)- was 340 (09/12)_ was 203 (2016- were in 300s) PCP: Osmar.CARDS: Noe Lyle ([facility]) F/U for T2DM on pump and CGM.On pump Tandem t-slim with dexcom G6. Evidence of fatty liver and dyslipidemia- Worse in 11/16. 04/19: Still planning for gastric sleeve- [place].Postponed due to COVID. Hoping for summer 2021.Ingrown left great toenail removed ([facility]) ROS:No fevers or chills.No cough or SOB. No loss of taste/smell.Looking back (05/18): lost sense smell/taste (like 100%).Nasty cold with fluid. lasted 6 weeks. Son 3 days later told of pneumonia. daughter got cold and too. Occ chest pain- tightness on left side.Had seen Joleen ([facility]) once (around 2014). Had ETT and told things were OK. Nuclear OK. No n/v or abdominal pain. Had nausea with ozempic.Noticed hernia (umbilical)- told not to worry about it. Told of 2 others at pre-test for gastric bypass. Did barium swallow- hiatal hernia. Small groin hernia too.Polyp in [place]- will have f/u U/S 08/2019. No temperature intolerance. Usually runs hot.No muscle pains/cramping- Some ongoing back and shoulders (Chronic).No dizziness with standing.Sleeping OK. On CPAP. Some nights, still hard.Not snoring. Feels like breathing better while sleeping. Osman Amaya MD [address] [place] [address], [id number], [facility] 2021 14:01:02 2 text/html DiabetesReported bypatient.Labs:last Hemoglobin A1C: at goal (7.0 (11/17 and 06/17) was 8.0 (01/16); was 6.9 (10/16); was7.0 (04/18); was 12/16); was 6.5 (05/18);); microalbumin/creatinine ratio: 2021 normal; serum creatinine: 2021 normal; LDL (33 (11/17); was 113 (01/16)); Triglycerides decreasing (235 (11/17); was 349 (01/16); was 317 (04/18); was 198; was 220 (05/18); was 277 (12/15); was 430 (05/17);); HDL (30 (11/17); was 32 (01/16); was 30 (10/16); was 31 (04/18); was 35; was 38 (05/18); was 36 (12/15); was 34 (05/17); was 30 (08/13); was 31.); LFTS; see below. Diabetes Medications:metformin (OFF since gastric sleeve; was 1000 bid;); glipizide (OFF); pioglitazone (OFF); glargine (OFF (ON PUMP): was LANTUS; 55 HS ;); aspart (Novolog in pump per insurance (2020); OFF OZEMPIC (05/20) Insulin pump settings:Insulin pump modeltandem; insulin pump maketslimi Renal/HTN Medications:OFF BP MEDS: was losartan, HCTZ and metoprolol. Lipid Medications:rosuvastatin (40 (11/17)); OFF Vascepa- started by CARDS (2021). Review blood sugar:See below Associated Symptoms:no polyuria; no nocturia; no burning or discomfort with urination; no blurred vision; Still on CPAP. Off caffeine and soda. Cardiac / Eye / Podiatric / Renal / Vascular Symptomsno coronary artery disease (see below- had cardiology w/u.); no retinopathy (Cherie ([place] 2020)); no numbness of feet; no kidney disease; no peripheral vascular disease; no neuropathy; Has f/u with CARDS. Hx of occ. CP with stress at work- life safety and customers. PCP did EKG- told it was OK. Had CP in past- did ETT (leads fell off and had to do nuclear ETT but told that was OK) Maybe heartburn. Knows he has hiatal hernia. Hypoglycemia Symptomsfrequency of hypoglycemic episodes; Severity of hypoglycemic episodes mild; Excessive sweating when hypoglycemic (Weak in knees. confused but knows what's going on); One episode after treadmill. Lightheaded/dizzy. almost like drunk. sweating/shaking. In past (2019), has hiked [place] to [place] of [place]. Alarm - alarm showed (60s). not much sx (was sweaty while hiking- didn't have sugar with him). still has some sensor lows not confirmed by POC.Notes:MED HX:Stopped glipizide at time tried Trulicity to try and protect insulin secretory abilities.When had s/e of Trulicity, went on to Lantus at HS.Tried Victoza but had GI s/e.Previously used chart with sensitivity of 15 and ins:CHO= 1:6 and exercise factor of 1.0Off chromium and cinnamon had tried but stopped. LIPIDS:01/16: 145-349(were 448)-32-113 LFTS:ALT= 33 (11/17); 66 (01/16); was 67 (10/16); was 60 (04/18); was 52 was 41; was 16 (2019); was 19 (01/14); was 32 (05/17); was 42 (08/13); was 69 (05/16); was 60 (was 46 -was 30 but had been 60). Had been closer to 90 in 12/12. AST = 15 (11/17); was 29 (01/16); was 31 (10/16); was 33 (04/18); was 25; was 16; was 33 (05/18); was 39 (01/14); was 19 (05/17); was 22 (08/13); was 34 (05/16); was 27 -was 79 (09/12)- was 60. 04/18: Pump [id number] - 4 am= 2.54am to 9pm 2.59pmto 12am 2.5 [id number] 1 to 34am -9pm ..1 to 2.8(changed today)9pm to 12am .1 to 3 insulin sensitivity1 to 10 At all times PREVIOUS LABS:a1c= was 7.0 (12/15); was 7.5 (05/17); was 6.5 (08/13); was 6.7 (05/16); T (04/18); was 198; was 220 (05/18); was 277 (12/15); was 430 (05/17); was 190 (08/13); was 235(05/16); was 334 (01/12)- was 340 (09/12)_ was 203 (2016- were in 300s) PCP: Osmar.CARDS: Noe Lyle ([facility]) follow-Up: Type 2 diabetes mellitus without complicationFollow-Up: liver enzymes abnormalFollow-Up: hyperlipidemiaFollow-Up: diabetes mellitusLV on 04/29/21LAst labs on 10/27/21 A1C- 7.0Labs in place until 3PT has CGM and taddem t-slim pump present will download information to chartPT had Gastric sleeve surgery done in october 21 2021, also has alot of medications on hold until follows up with PCP next next. F/U for T2DM on pump and CGM.On pump Tandem t-slim with dexcom G6. Evidence of fatty liver and dyslipidemia- Worse in 11/16. 04/19: gastric sleeve postponed due to COVID.Ingrown left great toenail removed ([facility]) 11/17: Off BP meds since gastric sleeve. 126/88 (no meds).Off metformin. had pump adjusted by ENDO at [facility]. Cut pump settings in half.CGM showing low 100s. ROS:No fevers or chills.No cough or SOB. No loss of taste/smell.Looking back (05/18): lost sense smell/taste (like 100%).Nasty cold with fluid. lasted 6 weeks. Son 3 days later told of pneumonia. daughter got cold and too. Occ chest pain- tightness on left side.Had seen Joleen ([facility]) once (around 2014). Had ETT and told things were OK. Nuclear OK. Some nausea post-op. no meds today (first day today) No abdominal pain. Fixed hernia (umbilical) at time of sleeve.Polyp in [place]- will have f/u U/S 08/2019. No temperature intolerance. Usually runs hot.No muscle pains/cramping- Some ongoing back and shoulders (Chronic).Some dizziness with standing but better off BP meds.Sleeping OK. On CPAP. Some nights, still hard.Not snoring. Feels like breathing better while sleeping. Osman Amaya MD [address] [place] [address], [phone], [facility] 12/11/2021 12:44:12 2 text/html DSME Evaluation, Plan and GoalsReported bypatient.DSME Goal #1Medications (He questions if another diabetes medication will work for him, however, think what he is currently taking is enough right now. We reviewed how incretins may cause more side effects after having surgery.); Goal Success 100% Always Plan Initiated:Date initiated (DSME dates seen: 12/23/21;) DSME Plan Status:In process Diabetes Ed Classespatient not appropriateDiabetes Self Management History & IntakeReported bypatient.Patient HistoryPatient chief complaint today:Needs help interpreting blood sugars; has seen DM Educator in past Within the last year Recent Lab Tests:See Flow Sheet/Chart for current lab values.; Hemoglobin A1C:7.0% in October. CoMorbidities & Other Complicating FactorsHyperlipidemia;Hyp ertension Hypoglycemia SymptomsNo hypoglycemia reported.; His sensor download reveals less than 1% of hypoglycemia. Home Glucose Monitoring:monitoring glucose daily; No longer wearing pump, however, he continues to wear the sensor. Blood Sugar Readings:See attached blood sugar download.; Able to review the sensor download. Diabetes Medications:Refer to Med list or A/P. Insulin Therapy:Has come off of insulin since having the Gastric Bypass surgery (the sleeve) on October 21, 2021. Insulin Pump Use and Settings:He has come off the insulin pump since having the gastric bypass surgery. Physical ActivityAdmits he is more active and is active daily with walks. -Has 2 kids (son 16.5 years and daughter 12 years)- was recently diagnosed with MS. Maricarmen Dunn, RN, BSN, [address], [phone], [facility] 12/23/2021 17:12:14 3 text/html DiabetesReported bypatient.Labs:last Hemoglobin A1C: at goal (7.1 (03/19); was 7.0 (11/17 and 06/17) was 8.0 (01/16); was 6.9 (10/16); was7.0 (04/18); was 12/16); was 6.5 (05/18);); microalbumin/creatinine ratio: 2021 normal; serum creatinine: 2021 normal; LDL (68 (03/19); was 33 (11/17); was 113 (01/16)); Triglycerides decreasing (181 (03/19); was 235 (11/17); was 349 (01/16); was 317 (04/18); was 198; was 220 (05/18); was 277 (12/15); was 430 (05/17);); HDL (44 (03/19); was 30 (11/17); was 32 (01/16); was 30 (10/16); was 31 (04/18); was 35; was 38 (05/18); was 36 (12/15); was 34 (05/17); was 30 (08/13); was 31.); LFTS; see below. Diabetes Medications:metformin (2000 mg; Had gone OFF since gastric sleeve; was 1000 bid;); glipizide (OFF); pioglitazone (OFF); glargine (OFF (ON PUMP): was LANTUS; 55 HS ;); aspart (Novolog in pump per insurance (2020); OFF OZEMPIC (05/20) Insulin pump settings:Insulin pump modeltandem; insulin pump maketslimi Renal/HTN Medications:OFF BP MEDS: was losartan, HCTZ and metoprolol. Lipid Medications:rosuvastatin (OFF (2022); was 40 (11/17)); OFF Vascepa- started by [facility] (2021). Review blood sugar:See below Associated Symptoms:no polyuria; no nocturia; no burning or discomfort with urination; no blurred vision; Still on CPAP but told he likely doesn't need it. Off caffeine and soda. Cardiac / Eye / Podiatric / Renal / Vascular Symptomsno coronary artery disease (see below- had cardiology w/u.); no retinopathy (Cherie (Nasreen at [facility] in 2021)); no numbness of feet; no kidney disease; no peripheral vascular disease; no neuropathy; Has seen CARDS in past- not recently. Hx of occ. CP in past- none now. Stress at work- life safety and customers. Had CP in past- did ETT (leads fell off and had to do nuclear ETT but told that was OK) Hypoglycemia Symptomsfrequency of hypoglycemic episodesinfrequently; Severity of hypoglycemic episodes mild; Excessive sweating when hypoglycemic (Weak in knees. confused but knows what's going on); No recent lows since gastric sleeve.Notes:LIPIDS:01/16 : 145-349(were 448)-32-113 LFTS:ALT= 16/28 (03/19); was 33 (11/17); 66 (01/16); was 67 (10/16); was 60 (04/18); was 52 was 41; was 16 (2019); was 19 (01/14); was 32 (05/17); was 42 (08/13); was 69 (05/16); was 60 (was 46 -was 30 but had been 60). Had been closer to 90 in 12/12. AST = 15 (11/17); was 29 (01/16); was 31 (10/16); was 33 (04/18); was 25; was 16; was 33 (05/18); was 39 (01/14); was 19 (05/17); was 22 (08/13); was 34 (05/16); was 27 -was 79 (09/12)- was 60. Had been on insulin pump but stopped using s/p gastric sleeve PREVIOUS LABS:a1c= was 7.0 (12/15); was 7.5 (05/17); was 6.5 (08/13); was 6.7 (05/16); T (04/18); was 198; was 220 (05/18); was 277 (12/15); was 430 (05/17); was 190 (08/13); was 235(05/16); was 334 (01/12)- was 340 (09/12)_ was 203 (2016- were in 300s) PCP: Osmar.CARDS: Noe Lyle ([facility]) Follow-Up: Type 2 diabetes mellitus without complicationFollow-Up: liver enzymes abnormalFollow-Up: hyperlipidemiaFollow-Up: diabetes mellitusLV on 11/17LAst labs on 03/19 A1C- 7.1Labs cuedPT has CGM and tadem t-slim pump present will download information to chartPT sees DM educatorPT had Gastric sleeve surgery done in october 21T had covid last month 04/20 about 3 weeks ago old mild cold SXPT having right knee surgery in 05/2022 to fix previous done in the pastMetformin only since gastric sleeve Right Knee ACL reconstructed but hasn't been right. Told of meniscus tear. (Jeremysetti)Left shoulder pain too - bursitis. Helped with cortisone shot. F/U for T2DM on pump and CGM.OFF pump Tandem t-slim- since gastric sleeve.Uses dexcom G6 occ. Previous evidence of fatty liver and dyslipidemia- Worse in 11/16. 05/21- repaired ingrown left great toenail removed ([facility])Has had that before (on right). 11/17: Off BP meds since gastric sleeve. 126/88 (no meds).Off metformin. had pump adjusted by ENDO at [facility]. Cut pump settings in half.CGM showing low 100s. ROS:No fevers or chills.No SOB.COVID: last was 04/20: Very mild.Looking back (05/18): lost sense smell/taste (like 100%).Nasty cold with fluid. lasted 6 weeks. Son 3 days later told of pneumonia. daughter got cold and too. No chest pain/pressure.Had seen Joleen ([facility]) once (around 2014). Had ETT and told things were OK. Nuclear OK. Fixed hernia (umbilical) at time of sleeve.Polyp in [place]- will have f/u U/S 08/2019. No temperature intolerance.No muscle pains/cramping- Some ongoing back and shoulders (Chronic).No dizziness with standing.Sleeping OK. On CPAP. Some nights, still hard.Not snoring. Feels like breathing better while sleeping. 2022 Still skiing. lots more energy than in past. Osman Amaya MD [address] [place] [address], [phone], [place] - [facility] 06/10/2022 10:00:18 3 text/html DiabetesReported bypatient.Labs:last Hemoglobin A1C: at goal (6.7 (11/18); was 7.1 (03/19); was 7.0 (11/17 and 06/17) was 8.0 (01/16); was 6.9 (10/16); was7.0 (04/18); was 12/16); was 6.5 (05/18);); microalbumin/creatinine ratio: 2022 normal; serum creatinine: 2022 normal; LDL (135 (11/18); was 68 (03/19); was 33 (11/17); was 113 (01/16)); Triglycerides decreasing (195 (11/18); was 181 (03/19); was 235 (11/17); was 349 (01/16); was 317 (04/18); was 198; was 220 (05/18); was 277 (12/15); was 430 (05/17);); HDL (41 (11/18); was 44 (03/19); was 30 (11/17); was 32 (01/16); was 30 (10/16); was 31 (04/18); was 35; was 38 (05/18); was 36 (12/15); was 34 (05/17); was 30 (08/13); was 31.); LFTS; see below. Diabetes Medications:metformin (2000 mg; Had gone OFF since gastric sleeve; was 1000 bid;); OFF OZEMPIC (05/20); couldn't tolerate. Renal/HTN Medications:metoprolol. Lipid Medications:rosuvastatin (OFF (2022); was 40 (11/17)); OFF Vascepa- started by CARDS (2021). Review blood sugar:See below Associated Symptoms:no polyuria; no nocturia; no burning or discomfort with urination; no blurred vision; Still on CPAP - can't sleep without it but told he likely doesn't need it. Off caffeine and soda. Cardiac / Eye / Podiatric / Renal / Vascular Symptomsno coronary artery disease (see below- had cardiology w/u.); no retinopathy (Cherie (Nasreen at [facility] in 2021)); no numbness of feet; no kidney disease; no peripheral vascular disease; no neuropathy; Has seen CARDS in past- not recently. Hx of occ. CP in past- none now. Stress at work- life safety and customers. Had CP in past- did ETT (leads fell off and had to do nuclear ETT but told that was OK) 11/18: Recent ER visit with severe CP and low BP- full w/u showed nothing- attributed to dehydration (little water intake s/p sleeve). In past, told of hiatal hernia (pre-COVID). Repeat @ [facility] ([facility])- told nothing there but then seen again on CT. Hypoglycemia Symptomsfrequency of hypoglycemic episodesinfrequently; Severity of hypoglycemic episodes mild; Excessive sweating when hypoglycemic (Weak in knees. confused but knows what's going on); No recent lows since gastric sleeve.Notes:LIPIDS:11/18: 215/195/41/22655/21: 145-349(were 448)-32-113 LFTS:ALT= 24 (11/18); was 16 (03/19); was 33 (11/17); 66 (01/16); was 67 (10/16); was 60 (04/18); was 52 was 41; was 16 (2019); was 19 (01/14); was 32 (05/17); was 42 (08/13); was 69 (05/16); was 60 (was 46 -was 30 but had been 60). Had been closer to 90 in 12/12. AST = 36 (11/18) was 28 (03/19); was 15 (11/17); was 29 (01/16); was 31 (10/16); was 33 (04/18); was 25; was 16; was 33 (05/18); was 39 (01/14); was 19 (05/17); was 22 (08/13); was 34 (05/16); was 27 -was 79 (09/12)- was 60. Had been on insulin pump but stopped using s/p gastric sleeve PREVIOUS LABS:a1c= was 7.0 (12/15); was 7.5 (05/17); was 6.5 (08/13); was 6.7 (05/16); T (04/18); was 198; was 220 (05/18); was 277 (12/15); was 430 (05/17); was 190 (08/13); was 235(05/16); was 334 (01/12)- was 340 (09/12)_ was 203 (2017- were in 300s) PCP: Osmar.CARDS: Noe Lyle ([facility]) Follow-Up: hyperlipidemiaFollow-Up: diabetes mellitusFollow-Up: Type 2 diabetes mellitus without complicationFollow-Up: liver enzymes outside reference rangeLV on 05/21LAst labs on 11/18 A1C- 6.7Lab orders in place until 05/22PT not using pump or CGM only on the metformin now after his weight loss surgery.PT had right knee surgery in 05/2022 to clean up arthritis /scopePt having diverticulitis flare up.PT does checks blood sugars occasionally,running 110-140PT not taking the rosuvastatin now PT had Gastric sleeve surgery done in october 21T had covid 04/20 about 3 weeks ago old mild cold SXPT having right knee surgery in 05/2022 to fix previous done in the pastMetformin only since gastric sleeve Right Knee ACL reconstructed but hasn't been right. Told of meniscus tear. (Dinorah)Left shoulder pain too - bursitis. Helped with cortisone shot. PAST MEDICAL Hx (updated):HTN and lipids:Hx of T2DM previously on insulin.2021 s/p sleeve at [facility] ([place]). Having constipation. Down 30# since pre-op.05/21: Has lost 87# over 7 months. Off insulin11/18: Knee OK. Diverticulitis x past few days.ER ([facility]) in 10/18: Severe CP thru back and to left arm. Nothing found except dehydration (80/40).Lots of tests (CT, carotids, GB/liver) and all negative. is teacher. 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 FAMILY Hx (updated):Dad is 70- Mom is 69 Sister (2 years younger)Kids-Ang (2005) -driving very metal cleaner: [employer] business and merchandising internship with [employer];Daughter: (Hussain- 2009). Loves to cook. think like her mom.No diabetes in the family. Previous evidence of fatty liver and dyslipidemia- Worse in 11/16. 05/21- repaired ingrown left great toenail removed ([facility])Has had that before (on right). 11/17: Off BP meds since gastric sleeve. 126/88 (no meds).Off metformin. had pump adjusted by ENDO at [facility]. Cut pump settings in half.CGM showing low 100s. 11/18: On metformin 1000 bid. Not on rosuvastatin. ROS:No fevers or chills. Even with recent ER visit.No SOB. (except for ER visit)COVID: last was 04/20: Very mild.Looking back (05/18): lost sense smell/taste (like 100%).Nasty cold with fluid. lasted 6 weeks. Son 3 days later told of pneumonia. daughter got cold and too. Had ER visit because of chest pain/pressure. Work-up were (-). Has f/u with CARDS ([facility])Had seen Joleen ([place]) once (around 2014). Had ETT and told things were OK. Nuclear OK. Fixed hernia (umbilical) at time of sleeve. Told of hiatal hernia (?ongoing)Polyp in [place]- will have f/u U/S 08/2019. No temperature intolerance.No muscle pains/crampingNo dizziness with standing.Sleeping OK. On CPAP. 2022 Still skiing. lots more energy than in past. Osman Amaya MD [address] [place] [address], [phone], [facility] 01/05/2023 05:05:36
== END 2024-05-31 10:38 | disposition home or self-care (01) ==
PROVIDERS: Emergency Provider Emergency Medicine; PCP Internal Medicine
DX: S93.402A Sprain of unspecified ligament of left ankle, initial encounter (principal); S96.912A Strain of unspecified muscle and tendon at ankle and foot level, left foot, initial encounter; I10 Essential (primary) hypertension; E11.9 Type 2 diabetes mellitus without complications; W00.0XXA Fall on same level due to ice and snow, initial encounter; Y93.9 Activity, unspecified; Y92.410 Unspecified street and highway as the place of occurrence of the external cause; Y99.9 Unspecified external cause status
CPT/HCPCS: 73610; 99282; 99283

== ENCOUNTER → 2024-05-31 10:08 | Outpatient (BNV) | payer BC, SELFPAY | PROVIDERS: Emergency Provider Emergency Medicine; PCP Internal Medicine; Visit Provider Radiology Diagnostic Radiology | DX: S99.912A Unspecified injury of left ankle, initial encounter (principal) | CPT/HCPCS: 73610 ==